=== PATIENT | male | born 1960 | race Caucasian/White ===

== ENCOUNTER 2024-12-23 20:59 | Inpatient (IN) ==
[2024-12-23] MEDS: SODIUM CHLORIDE 0.9% 1,000 ML IV SCH (21:57)
[2024-12-23 22:01] LABS: Hematocrit (blood only) 35.8 % (42.0-52.0); Hemoglobin 12.5 g/dl (14.0-18.0); Immature Granulocytes # (auto) 0.08 K/uL (0.01-0.20); Immature Granulocytes % (auto) 0.9 %; Mean Corpuscular Hemoglobin 28.5 pg (25.0-34.0); Mean Corpuscular Volume 81.7 fL (80.0-100.0); Platelet Count 287 K/uL (130-400); RDW Standard Deviation 40.8 fL (36.4-46.3); Red Blood Count 4.38 M/uL (4.70-6.10); White Blood Count 8.44 K/ul (4.8-10.8)
[2024-12-23] MEDS: ONDANSETRON INJ 2 MG/ML 2 ML VIAL IV STA (22:07)
--- NOTE | 2024-12-23 22:18 | Emergency Department Note ---
Impression & Plan CARLOS (acute kidney injury), Acute hyponatremia, Acute hypokalemia, Hypomagnesemia ED Provider Note Diagnosis: Acute kidney injury, hypokalemia, hypomagnesia, hyponatremia Disposition: Admission CHIEF COMPLAINT: Vomiting, abnormal outpatient lab work HPI: Patient is a 64-year-old male presenting with abnormal outpatient lab work. Patient has had significant medical course over the past 2 months time. Patient on November 05 had [id number] cardiac arrest witnessed with instant CPR performed. Patient had cardiac catheterization without need for stenting. Patient did have some V. tach in the ICU at that time reportedly and patient had ICD placed. Patient had to return to the hospital 2 to 3 weeks later requiring PICC line and IV antibiotics and removal of the ICD due to infection. LifeVest was placed. Patient has been experiencing nausea vomiting and has been on vickie pills for it. Patient found to have outpatient abnormal blood work of abnormal electrolytes and acute kidney function today was sent in for IV hydration and further evaluation. Patient's infectious disease doctor had stopped his rifampin 2 days prior due to believing it was causing his acute kidney injury. PAST MEDICAL HISTORY: See Below PAST SURGICAL HISTORY: See Below SOCIAL HISTORY: See Below HOME MEDICATIONS: See Below ALLERGIES: See Below VITALS: See Below PHYSICAL EXAMINATION: GENERAL: Well appearing, well nourished, NAD, non-toxic. EYE EXAM: Normal conjunctiva. OROPHARYNX: Moist mucus membranes. Grossly normal dentition. NECK: Supple, LUNGS: Clear to auscultation. Normal chest wall mechanics. HEART: NSR ABDOMEN: Abdomen soft, non-tender, normo-active bowel sounds, no masses, no rebound or guarding BACK: No CVA TTP. SKIN: No rashes and no bruising. UPPER EXTREMITIES: Upper extremities are grossly normal LOWER EXTREMITIES: Grossly normal, no edema. NEURO EXAM: A&O x3,, normal speech, moves all 4 extremities PSYCH: Cooperative MEDICAL DECISION MAKING: Reviewed external documents: Outpatient isinger blood work History obtained from: Patient, and daughter ER Course: Patient is a 64-year-old male presenting with abnormal outpatient lab work. Patient found to have acute kidney injury. Patient recently stopped his rifampin at infectious disease request. Patient found today to have continued hyponatremia acute kidney injury and hypomagnesia. Patient was given Zofran due to QTc being 430 today. Patient had significant improvement in his nausea after this being administered. Patient had no abdominal pain abdomen was soft. Patient wearing LifeVest in the room. Patient having no active chest pain. Patient's case discussed with hospital service and will see him for further treatment evaluation Labs (independently interpreted) are significant for: Hyponatremia, hypokalemia, hypomagnesia EKG interpretation (independently interpreted): A-flutter regular rate no ST segment elevation or depression Medications given: Normal saline, Zofran, magnesium, potassium Consultants: Hospitalist Triage Nursing notes reviewed and agree them. Vital Signs: reviewed and remarkable for: no significant abnormalities Past Med/Surg History Problem List (Updated 12/23/24 @ 23:19 by Isaias Cohen DO) Hypomagnesemia (Acute) Acute hypokalemia (Acute) Acute hyponatremia (Acute) CARLOS (acute kidney injury) (Acute) Social History Smoking Status: Never smoker Preferred Language: Korean Feels Safe at Home: Yes Allergies Allergies Allergy/AdvReac Type Severity Reaction Status Date / Time Gutavdc-BJN-WnI Reductase AdvReac Severe SEVERE Verified 12/23/24 22:17 Inhibitor MUSCLE PAIN/CRAMPS nitroglycerin AdvReac Intermediate BLOOD Verified 12/23/24 22:17 PRESSURE BOTTOMED OUT Home Meds Home Medications Medication Instructions Recorded Confirmed acetaminophen 325 mg tablet 650 mg PO Q4H PRN PAIN/FEVER 12/23/24 12/23/24 (Tylenol) >100.5F amiodarone 200 mg tablet 200 mg PO DAILY 12/23/24 12/23/24 aspirin 81 mg chewable tablet 81 mg PO DAILY 12/23/24 12/23/24 calcium carbonate (Tums E-X) 300 mg PO Q8H PRN Heartburn 12/23/24 12/23/24 doxycycline hyclate 100 mg capsule 100 mg PO BID 12/23/24 12/23/24 ezetimibe 10 mg tablet 10 mg PO DAILY 12/23/24 12/23/24 heparin lock flush (porcine) 10 10 unit IV BID 12/23/24 12/23/24 unit/mL intravenous solution insulin glargine 100 unit/mL (3 80 unit subcut PM 12/23/24 12/23/24 mL) subcutaneous pen (Lantus Solostar U-100 Insulin) levothyroxine 75 mcg tablet 75 mcg PO DAILYBB 12/23/24 12/23/24 (Levoxyl) loratadine 10 mg tablet (Claritin) 10 mg PO DAILY 12/23/24 12/23/24 magnesium chloride 64 mg 64 mg PO DAILY 12/23/24 12/23/24 (magnesium chloride) tablet,delayed release omega-3 fatty acids 1,000 mg 1,000 mg PO DAILY 12/23/24 12/23/24 capsule oxycodone 10 mg tablet 10 mg PO Q6H PRN Pain 12/23/24 12/23/24 pantoprazole 40 mg tablet,delayed 40 mg PO DAILY 12/23/24 12/23/24 release semaglutide 0.25 mg or 0.5 mg (2 0.5 mg subcut WK 12/23/24 12/23/24 mg/3 mL) subcutaneous pen injector (Ozempic) sennosides 8.6 mg tablet (senna) 8.6 mg PO DAILY 12/23/24 12/23/24 sodium chloride 0.9 % (flush) 10 ml IV DIRECTED 12/23/24 12/23/24 spironolactone 25 mg tablet 25 mg PO DAILY 12/23/24 12/23/24 torsemide 20 mg tablet 40 mg PO DAILY 12/23/24 12/23/24 warfarin 5 mg tablet 5 mg PO DIRECTED 12/23/24 12/23/24 Results & Data (ED) Vital Signs Vital Signs - 24 hr 12/23/24 21:02 12/23/24 21:50 Temperature 36.8 C Temperature Source Oral Respiratory Rate 20 Respiratory Depth Normal Blood Pressure 129/78 Blood Pressure Mean 95 Pulse Oximetry 98 96 Oxygen Delivery Method Room Air Room Air Sepsis Recent Fever Within 48 Hours No Sepsis New/Unexplained Change in Mental Status No Sepsis Action Taken by Nursing No Action Required Laboratory Data 12/23/24 21:19 12/23/24 21:19 Lab Results 12/23/24 Range/Units 21:19 WBC 8.44 (4.8-10.8) K/ul RBC 4.38 L (4.70-6.10) M/uL Hgb 12.5 L (14.0-18.0) g/dl Hct 35.8 L (42.0-52.0) % MCV 81.7 (80.0-100.0) fL MCH 28.5 (25.0-34.0) pg MCHC 34.9 (32.0-36.0) g/dL RDW Std Deviation 40.8 (36.4-46.3) fL RDW Coeff of Yanelis 13.7 (11.5-14.5) % Plt Count 287 (130-400) K/uL MPV 8.9 L (9.4-12.4) fL Immature Gran % (Auto) 0.9 % Neut % (Auto) 69.1 % Lymph % (Auto) 19.3 % [place] % (Auto) 8.3 % Eos % (Auto) 1.1 % Baso % (Auto) 1.3 % Neut # (Auto) 5.83 (1.40-6.50) K/uL Lymph # (Auto) 1.63 (1.20-3.40) K/uL [place] # (Auto) 0.70 H (0.11-0.59) K/uL Eos # (Auto) 0.09 (0.00-0.50) K/uL Baso # (Auto) 0.11 (0.00-0.20) K/uL Immature Gran # (Auto) 0.08 (0.01-0.20) K/uL Sodium 129 L (136-145) mmol/L Potassium 3.2 L (3.5-5.1) mmol/L Chloride 85 L (98-107) mmol/L Carbon Dioxide 31 (21-32) mmol/L Anion Gap 13 H (3-11) BUN 16 (6-23) mg/dl Creatinine 1.84 H (0.6-1.4) mg/dl Est Cr Clr Drug Dosing 45.2 ml/min eGFR 40.43 BUN/Creatinine Ratio 8.7 L (10-20) Glucose 159 H (70-99(Fasting)) mg/dl Calcium 11.0 H (8.6-10.3) mg/dl Magnesium 1.5 L (1.7-2.4) mg/dl Total Bilirubin 0.8 (0.2-1.0) mg/dl AST 51 H (13-39) U/L ALT 69 H (7-52) U/L Alkaline Phosphatase 124 H (34-104) U/L Troponin I High Sens 13.3 (0-20) pg/ml Total Protein 9.6 H (6.0-8.3) gm/dl Albumin 3.7 (3.4-5.0) gm/dl Globulin 5.9 H (2.5-4.0) gm/dl Albumin/Globulin Ratio 0.6 L (0.9-2) Lipase 99 H (11-82) U/L Administered Medications Discontinued Medications Sodium Chloride (Nss) 1,000 mls @ 999 mls/hr IV .Q1H1M KAVON Stop: 12/23/24 23:00 Last Admin: 12/23/24 21:57 Dose: 999 mls/hr Documented By: kaylin Ondansetron HCl (Ondansetron Inj 2 Mg/Ml 2 Ml Vial) 4 mg IV NOW STA Stop: 12/23/24 22:05 Last Admin: 12/23/24 22:07 Dose: 4 mg Documented By: kaylin Discharge Plan Visit Data Chief Complaint: Abnormal Labs/Diagnostic Testing Stated Complaint: LOW K, LOW NA, CARDIAC ARREST 1 MONTH AGO ED Provider: Isaias Cohen Discharge Problem: CARLOS (acute kidney injury), Acute hyponatremia, Acute hypokalemia, Hypomagnesemia Condition: Serious Forms Stand Alone Forms: My [facility] Prescriptions Prescriptions: No Action sennosides [senna] 8.6 mg Tablet 8.6 mg PO DAILY acetaminophen [Tylenol] 325 mg Tablet 650 mg PO Q4H PRN (Reason: PAIN/FEVER >100.5F) doxycycline hyclate 100 mg Capsule 100 mg PO BID Rx Instructions: WILL NOT START UNTIL 01/19/25. torsemide 20 mg Tablet 40 mg PO DAILY omega-3 fatty acids 1,000 mg Capsule 1,000 mg PO DAILY amiodarone 200 mg Tablet 200 mg PO DAILY Tums E-X 300 mg (750 mg) Tablet,Chewable 300 mg PO Q8H PRN (Reason: Heartburn) spironolactone 25 mg Tablet 25 mg PO DAILY levothyroxine [Levoxyl] 75 mcg Tablet 75 mcg PO DAILYBB heparin lock flush (porcine) 10 unit/mL Solution 10 unit IV BID Rx Instructions: PICC LINE administer after IV drug administration as part of [facility] protocol pantoprazole 40 mg Tablet,Delayed Release (Dr/Ec) 40 mg PO DAILY warfarin 5 mg Tablet 5 mg PO DIRECTED Rx Instructions: TAKES 10 MG ON MON, WED, & FRI., THEN 7.5 MG ON SUN, ES, THURS, & SAT. aspirin 81 mg Tablet,Chewable 81 mg PO DAILY loratadine [Claritin] 10 mg Tablet 10 mg PO DAILY sodium chloride 0.9 % (flush) Syringe 10 ml IV DIRECTED Rx Instructions: PICC LINE administer before and after IV drug administration as part of [facility] protocol ezetimibe 10 mg Tablet 10 mg PO DAILY insulin glargine [Lantus Solostar U-100 Insulin] 100 unit/mL (3 mL) Insulin Pen 80 unit SUBCUT PM oxycodone 10 mg Tablet 10 mg PO Q6H PRN (Reason: Pain) magnesium chloride 64 mg Tablet,Delayed Release (Dr/Ec) 64 mg PO DAILY Ozempic 0.25 mg or 0.5 mg (2 mg/3 mL) Pen Injector 0.5 mg SUBCUT WK Referrals Referrals: PCP,NO [Physician] -
[2024-12-23 22:38] LABS: Alanine Aminotransferase 69.0 U/L (7-52); Albumin Globulin Ratio 0.6 (0.9-2); Alkaline Phosphatase 124.0 U/L (34-104); Anion Gap 13.0 (3-11); Bilirubin,Total 0.8 mg/dl (0.2-1.0); Blood Urea Nitrogen 16.0 mg/dl (6-23); Calcium 11.0 mg/dl (8.6-10.3); Carbon Dioxide 31.0 mmol/L (21-32); Chloride 85.0 mmol/L (98-107); Creatinine Clr Calc Pharmacy 45.2 ml/min; Globulin 5.9 gm/dl (2.5-4.0); Glucose 159.0 mg/dl (70-99(Fasting)); Lipase 99.0 U/L (11-82); Magnesium 1.5 mg/dl (1.7-2.4); Potassium 3.2 mmol/L (3.5-5.1); Sodium 129.0 mmol/L (136-145); Total Protein 9.6 gm/dl (6.0-8.3)
[2024-12-23] MEDS: MAGNESIUM SULFATE / D5W 1 GM/100 ML BAG IV SCH (23:57)
[2024-12-23] MEDS: POTASSIUM CHLORIDE CRTAB 20 MEQ TABCR PO STA (23:58)
[2024-12-24] MEDS: PANTOprazole 40 MG/10 ML SYR IV ONE (00:13)
--- NOTE | 2024-12-24 02:13 | History & Physical Report ---
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 Patient was having persistent nausea and vomiting. And also CARLOS. Recently was in [facility] ER. Currently patient following with [facility] cardiology and ID. When at [facility] Er Patient called [facility] and told that he is not tolerating rifampin and going to stop it. ID was worried that his Coumadin levels may go off for abruptly stopping rifampin. As per , patient stopped taking rifampin since Friday. Patient states nausea slightly better since Friday. Since last 1 week he has a lot of nausea and vomiting and not able to eat anything. Feeling weak and tired. Has some heartburn. Denies any chest pain. Denies shortness of breath. Afebrile. No headache. No back pain. No cough. No runny nose or sore throat. Bowel and bladder movements normal. No swelling in the legs. Hemodynamics are okay. His outpatient labs showed CARLOS and electrolyte abnormalities and was advised to come to the ER today. In the [facility] epic notes [facility] wanted to call when patient get admitted to hospital. Talked with the ID Dr. Damián [place]. There is question of CARLOS from IV Vanco and ID wanted to change the Vanco for Dapto for now and to decide further antibiotics in a.m. As per the chart he supposed to continue IV antibiotics until 01/18/2025 and then changed to doxycycline after that. There is no drainage or erythema seen surrounding recent ICD removal site. CARLOS Creatinine 1.8 Baseline creatinine 0.9 Holding diuretics Changing Vanco to Dapto Patient having persistent nausea vomiting Gentle fluids Follow repeat labs. Electrolyte abnormalities Hypokalemia and hypomagnesia Replacing Will follow repeat labs Nausea and vomiting Patient thinks possibly from rifampin which was stopped last Friday If not improving will consult GI Getting gentle fluids To avoid QT prolonging drugs as per cardio because of V. tach arrest Received a dose of Zofran in the ER today as his QT was okay We will monitor MRSA bacteremia Presumed prosthetic valve infection Was placed on rifampin and Vanco Was on gentamicin until last Friday Rifampin was stopped last Friday because of nausea vomiting Currently Vanco was getting changed to Dapto for possible Vanco contributing to CARLOS will follow lfts and cpk levels Close follow-up with ID Duration of antibiotics per ID ID consult History of CAD status post CABG On aspirin, Zetia Nonsustained VT Recent VT arrest On amiodarone LifeVest Chronic systolic CHF Echo on 12/06/2024 shows EF of 40 to 44% Currently holding spironolactone and torsemide for CARLOS and electrolyte abnormalities Getting gentle fluids Monitor for volume overload A-fib/a flutter On amiodarone and Coumadin Follow PT/INR Aortic valve replacement On Coumadin Follow PT/INR Diabetes Continue home Lantus Sliding scale Will monitor Hypothyroidism On Synthyroid Hyperlipidemia On Zetia GERD On Protonix DVT prophylaxis On Coumadin Will monitor INR On discharge patient want to follow-up with [facility] P[facility] History of Present Illness Chief Complaint: Weakness and electrolyte abnormalities Primary Care Provider: Tera Upton 64-year-old male with past medical history significant for hyperlipidemia, history of CAD, status post CABG hypertension, history of septic shock, bicuspid aortic valve status post mechanical aortic valve replacement, thoracic aortic aneurysm repair, 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 Patient was having persistent nausea and vomiting. And also CARLOS. Recently was in [place] ER. Currently patient following with [facility] cardiology and ID. When at [facility] Er Patient called [facility] and told that he is not tolerating rifampin and going to stop it. ID was worried that his Coumadin levels may go off for abruptly stopping rifampin. As per , patient stopped taking rifampin since Friday. Patient states nausea slightly better since Friday. Since last 1 week he has a lot of nausea and vomiting and not able to eat anything. Feeling weak and tired. Has some heartburn. Denies any chest pain. Denies shortness of breath. Afebrile. No headache. No back pain. No cough. No runny nose or sore throat. Bowel and bladder movements normal. No swelling in the legs. Hemodynamics are okay. His outpatient labs showed CARLOS and electrolyte abnormalities and was advised to come to the ER today. In the [facility] epic notes [facility] wanted to call when patient get admitted to hosp [facility]. Talked with the ID Dr. Damián [place]. There is question of CARLOS from IV Vanco and ID wanted to change the Vanco for Dapto for now and to decide further antibiotics in a.m. As per the chart he supposed to continue IV antibiotics until 01/18/2025 and then changed to doxycycline after that. There is no drainage or erythema seen surrounding recent ICD removal site. Past medical history. As mentioned above Past surgical history. Ascending aortic aneurysm graft with bypass. CABG. Left heart catheterization. History history of single chamber defibrillator placement. Appendectomy. Removal of defibrillator. Repair of tibial shaft. Aortic valve replacement. Social history. . Quit cigarettes in 2018. No alcohol use. No drug use. Family history. Sister had cancer. Mother had diabetes. Heart disorder. Hypertension. Father had heart disorder. Hypertension. Allergies Allergy/AdvReac Type Severity Reaction Status Date / Time Ajgmpyh-CBO-IoD Reductase AdvReac Severe SEVERE Verified 12/23/24 22:17 Inhibitor MUSCLE PAIN/CRAMPS nitroglycerin AdvReac Intermediate BLOOD Verified 12/23/24 22:17 PRESSURE BOTTOMED OUT Home Medications Medication Instructions Recorded Confirmed Type acetaminophen 325 mg tablet 650 mg PO Q4H PRN PAIN/FEVER 12/23/24 12/23/24 History (Tylenol) >100.5F amiodarone 200 mg tablet 200 mg PO DAILY 12/23/24 12/23/24 History aspirin 81 mg chewable tablet 81 mg PO DAILY 12/23/24 12/23/24 History calcium carbonate (Tums E-X) 300 mg PO Q8H PRN Heartburn 12/23/24 12/23/24 History doxycycline hyclate 100 mg capsule 100 mg PO BID 12/23/24 12/23/24 History ezetimibe 10 mg tablet 10 mg PO DAILY 12/23/24 12/23/24 History heparin lock flush (porcine) 10 10 unit IV BID 12/23/24 12/23/24 History unit/mL intravenous solution insulin glargine 100 unit/mL (3 80 unit subcut PM 12/23/24 12/23/24 History mL) subcutaneous pen (Lantus Solostar U-100 Insulin) levothyroxine 75 mcg tablet 75 mcg PO DAILYBB 12/23/24 12/23/24 History (Levoxyl) loratadine 10 mg tablet (Claritin) 10 mg PO DAILY 12/23/24 12/23/24 History magnesium chloride 64 mg 64 mg PO DAILY 12/23/24 12/23/24 History (magnesium chloride) tablet,delayed release omega-3 fatty acids 1,000 mg 1,000 mg PO DAILY 12/23/24 12/23/24 History capsule oxycodone 10 mg tablet 10 mg PO Q6H PRN Pain 12/23/24 12/23/24 History pantoprazole 40 mg tablet,delayed 40 mg PO DAILY 12/23/24 12/23/24 History release semaglutide 0.25 mg or 0.5 mg (2 0.5 mg subcut WK 12/23/24 12/23/24 History mg/3 mL) subcutaneous pen injector (Ozempic) sennosides 8.6 mg tablet (senna) 8.6 mg PO DAILY 12/23/24 12/23/24 History sodium chloride 0.9 % (flush) 10 ml IV DIRECTED 12/23/24 12/23/24 History spironolactone 25 mg tablet 25 mg PO DAILY 12/23/24 12/23/24 History torsemide 20 mg tablet 40 mg PO DAILY 12/23/24 12/23/24 History warfarin 5 mg tablet 5 mg PO DIRECTED 12/23/24 12/23/24 History Past Med/Surg History Problem List (Updated 12/23/24 @ 23:19 by Isaias Cohen DO) Hypomagnesemia (Acute) Acute hypokalemia (Acute) Acute hyponatremia (Acute) CARLOS (acute kidney injury) (Acute) Social History Smoking Status: Never smoker Hx Alcohol Use: No Hx Substance Use: No Preferred Language: Ethiopian Communication Ability: Effective Fashion Director Required: Yes and No Beliefs That Will Affect Care: None Current Living Situation: Spouse Feels Safe at Home: Yes Safety Concerns: Feels Safe At This Time Assistive Devices: Glasses Assistive Devices Comment: life vest with monitor and batteries Review of Systems Review of Systems: All systems reviewed & are unremarkable except as noted in HPI & below Physical Exam Physical Exam: General- Not in distress. Head- atraumatic Eyes- PERRL. ENT- oropharynx clear Neck- supple, no JVD. Lungs- clear to auscultation no wheezing or crackles Heart- regular rhythm; no murmur, no gallop. ICD removal site sutures seen. No erythema or drainage seen Abdomen- normal bowel sounds, soft, nontender, no distension Extremities- no pretibial edema, no erythema seen Neuro- alert, oriented PERRL, no facial palsy; no dysarthria; moves extremities Results & Data Results & Data Vital Signs (Past 12 Hours) Vital Signs Temp Resp BP Pulse Ox O2 Del Method 12/23/24 21:50 96 Room Air 12/23/24 21:02 36.8 C 20 129/78 98 Room Air Diagnostic Findings Laboratory Results WBC 8.44 K/ul (4.8-10.8) 12/23/24 21:19 RBC 4.38 M/uL (4.70-6.10) L 12/23/24 21:19 Hgb 12.5 g/dl (14.0-18.0) L 12/23/24 21:19 Hct 35.8 % (42.0-52.0) L 12/23/24 21:19 MCV 81.7 fL (80.0-100.0) 12/23/24 21:19 MCH 28.5 pg (25.0-34.0) 12/23/24 21:19 MCHC 34.9 g/dL (32.0-36.0) 12/23/24 21:19 RDW Std Deviation 40.8 fL (36.4-46.3) 12/23/24 21:19 RDW Coeff of Yanelis 13.7 % (11.5-14.5) 12/23/24 21:19 Plt Count 287 K/uL (130-400) 12/23/24 21:19 MPV 8.9 fL (9.4-12.4) L 12/23/24 21:19 Immature Gran % (Auto) 0.9 % 12/23/24 21:19 Neut % (Auto) 69.1 % 12/23/24 21:19 Lymph % (Auto) 19.3 % 12/23/24 21:19 [place] % (Auto) 8.3 % 12/23/24 21:19 Eos % (Auto) 1.1 % 12/23/24 21:19 Baso % (Auto) 1.3 % 12/23/24 21:19 Neut # (Auto) 5.83 K/uL (1.40-6.50) 12/23/24 21:19 Lymph # (Auto) 1.63 K/uL (1.20-3.40) 12/23/24 21:19 [place] # (Auto) 0.70 K/uL (0.11-0.59) H 12/23/24 21:19 Eos # (Auto) 0.09 K/uL (0.00-0.50) 12/23/24 21:19 Baso # (Auto) 0.11 K/uL (0.00-0.20) 12/23/24 21:19 Immature Gran # (Auto) 0.08 K/uL (0.01-0.20) 12/23/24 21:19 Sodium 129 mmol/L (136-145) L 12/23/24 21:19 Potassium 3.2 mmol/L (3.5-5.1) L 12/23/24 21:19 Chloride 85 mmol/L (98-107) L 12/23/24 21:19 Carbon Dioxide 31 mmol/L (21-32) 12/23/24 21:19 Anion Gap 13 (3-11) H 12/23/24 21:19 BUN 16 mg/dl (6-23) 12/23/24 21:19 Creatinine 1.84 mg/dl (0.6-1.4) H 12/23/24 21:19 Est Cr Clr Drug Dosing 45.2 ml/min 12/23/24 21:19 eGFR 40.43 12/23/24 21:19 BUN/Creatinine Ratio 8.7 (10-20) L 12/23/24 21:19 Glucose 159 mg/dl (70-99(Fasting)) H 12/23/24 21:19 Calcium 11.0 mg/dl (8.6-10.3) H 12/23/24 21:19 Magnesium 1.5 mg/dl (1.7-2.4) L 12/23/24 21:19 Total Bilirubin 0.8 mg/dl (0.2-1.0) 12/23/24 21:19 AST 51 U/L (13-39) H 12/23/24 21:19 ALT 69 U/L (7-52) H 12/23/24 21:19 Alkaline Phosphatase 124 U/L (34-104) H 12/23/24 21:19 Troponin I High Sens 13.3 pg/ml (0-20) 12/23/24 21:19 Total Protein 9.6 gm/dl (6.0-8.3) H 12/23/24 21:19 Albumin 3.7 gm/dl (3.4-5.0) 12/23/24 21:19 Globulin 5.9 gm/dl (2.5-4.0) H 12/23/24 21:19 Albumin/Globulin Ratio 0.6 (0.9-2) L 12/23/24 21:19 Lipase 99 U/L (11-82) H 12/23/24 21:19 ECG Additional Comments: ECG a flutter with variable AV block at a rate of 89. ST-T abnormality in lateral leads. QTc 435 Code Status & VTE Plan VTE Prophylaxis Plan VTE Prophylaxis will be ordered: Yes
[2024-12-24] MEDS ORDERED: ACETAMINOPHEN 325 MG TAB PO PRN (03:00)
[2024-12-24] MEDS ORDERED: DEXTROSE 50% 50 ML SYRINGE IV PRN (03:00)
[2024-12-24] MEDS ORDERED: GLUCOSE 40% GEL 15 GM TUBE PO PRN (03:00)
[2024-12-24] MEDS ORDERED: NITROGLYCERIN SL 0.4 MG/TAB TAB SL PRN (03:00)
[2024-12-24] MEDS ORDERED: SODIUM CHLORIDE 0.9% 10ML FLUSH IV SCH (03:00)
[2024-12-24] MEDS ORDERED: GLUCAGON FOR INJ 1 MG VIAL SQ PRN (03:00)
[2024-12-24] MEDS ORDERED: WARFARIN SOD 5 MG TAB PO SCH (03:00)
[2024-12-24] MEDS ORDERED: CARBOHYDRATES FOR HYPOGLYCEMIA PO PRN (03:00)
[2024-12-24] MEDS ORDERED: GLUCOSE 10 TAB/TUBE PO PRN (03:00)
[2024-12-24] MEDS ORDERED: CALCIUM CARBONATE 500 MG CHEWABLE TAB PO PRN (03:13)
[2024-12-24] MEDS: SODIUM CHLORIDE 0.9% 1,000 ML IV SCH (03:21)
[2024-12-24] MEDS: DAPTOmycin 700 MG in SYRINGE 0 ML IV SCH (03:26)
[2024-12-24 04:01] LABS: INR 1.9 (0.9-1.1); Prothrombin Time 19.1 Seconds (9.0-12.0)
[2024-12-24] MEDS: LEVOTHYROXINE SODIUM 75 MCG TABLET PO SCH (05:38)
[2024-12-24 06:59] LABS: Hematocrit (blood only) 31.7 % (42.0-52.0); Hemoglobin 11.0 g/dl (14.0-18.0); Immature Granulocytes # (auto) 0.05 K/uL (0.01-0.20); Immature Granulocytes % (auto) 0.7 %; Mean Corpuscular Hemoglobin 29.0 pg (25.0-34.0); Mean Corpuscular Volume 83.6 fL (80.0-100.0); Platelet Count 227 K/uL (130-400); RDW Standard Deviation 42.1 fL (36.4-46.3); Red Blood Count 3.79 M/uL (4.70-6.10); White Blood Count 7.40 K/ul (4.8-10.8)
[2024-12-24 07:20] LABS: Alanine Aminotransferase 71.0 U/L (7-52); Alkaline Phosphatase 99.0 U/L (34-104); Anion Gap 9.0 (3-11); Bilirubin,Total 0.7 mg/dl (0.2-1.0); Blood Urea Nitrogen 14.0 mg/dl (6-23); Calcium 9.6 mg/dl (8.6-10.3); Carbon Dioxide 28.0 mmol/L (21-32); Chloride 94.0 mmol/L (98-107); Creatine Kinase 37.0 U/L (30-223); Creatinine Clr Calc Pharmacy 48.2 ml/min; Glucose 175.0 mg/dl (70-99(Fasting)); Magnesium 2.1 mg/dl (1.7-2.4); Potassium 3.2 mmol/L (3.5-5.1); Sodium 131.0 mmol/L (136-145); Total Protein 8.0 gm/dl (6.0-8.3)
[2024-12-24 08:01] LABS: Hemoglobin A1C 7.0 % (4.5-5.6)
[2024-12-24] MEDS: AMIODARONE 200 MG TAB PO SCH (08:32)
[2024-12-24] MEDS: ASPIRIN 81 MG CHEW PO SCH (08:33)
[2024-12-24] MEDS: LORATADINE 10 MG TAB PO SCH (08:33)
[2024-12-24] MEDS: EZETIMIBE 10 MG TAB PO SCH (08:33)
[2024-12-24] MEDS: MAGNESIUM CHLORIDE W/CALCIUM 64MG DELAYED REL TAB PO SCH (08:33)
[2024-12-24] MEDS: INSULIN ASPART PER UNIT CHARGE SC SCH (08:37)
--- NOTE | 2024-12-24 13:22 | Infectious Disease Consult ---
Date of Service December 24, 2024 Telehealth Information I performed this visit using a real-time telehealth connection between my location and the patients location ([facility]). After connecting through interactive tele-video, patient was identified by name and date of and/or wristband check.Patient (or authorized healthcare contracts representative) was informed that this was a telemedicine visit and it was being conducted confidentially over secure lines. My office door was closed and no o ne else was present in the room with me.Patient (or authorized healthcare contracts representative) provided consent to proceed with the visit, expressed an understanding of privacy and security of the telemedicine visit, and gave permission to have a hospital contracts representative in the room in order to assist with the visit and to conduct portions of the visit, as needed. I informed the patient (or authorized healthcare contracts representative) that I reviewed their record and presented the opportunity for them to ask any questions regarding the visit today. The patient agreed to participate. 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 Therefore, I agree with changing IV vancomycin to IV daptomycin. We will continue the course of treatment with IV daptomycin only; to be transitioned after that to oral doxycycline for chronic suppressive therapy. Since the patient has been having significant GI side effects due to rifampin, I would recommend stopping it completely. Updated OPAT note to follow in another encounter. History of Present Illness History of Present Illness Mr. 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 Patient is known to our service from his admission to [facility] on 12/04/2024 because of septic shock. At that time, he was found to have MRSA bacteremia with JUDIE showing no intracardiac masses or vegetations or even ICD vegetations. During that admission, the ICD was removed and ICD deep pocket wound was swabbed and sent for culture which grew MRSA. 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 The patient completed his gentamicin, but he has been having nausea and vomiting since discharge which was attributed to rifampin and he had to stop taking it on Friday12/21/2024. Moreover, outpatient labs from 12/23/2024 were suggestive of CARLOS with electrolyte disturbances (creatinine 1.97 and potassium of 3). He then contacted my colleague, Dr. Park who decided to change vancomycin to daptomycin and instructed the patient to go to the Emergency Department for further management. On presentation, all of his vitals were within normal limits. His chemistry showed hyponatremia, hypokalemia and elevated creatinine at 1.84. ID team was consulted for further recommendations and for continuity of care. Allergies Allergy/AdvReac Type Severity Reaction Status Date / Time [id number] Reductase AdvReac Severe SEVERE Verified 12/23/24 22:17 Inhibitor MUSCLE PAIN/CRAMPS nitroglycerin AdvReac Intermediate BLOOD Verified 12/23/24 22:17 PRESSURE BOTTOMED OUT Home Medications Medication Instructions Recorded Confirmed Type acetaminophen 325 mg tablet 650 mg PO Q4H PRN PAIN/FEVER 12/23/24 12/23/24 History (Tylenol) >100.5F amiodarone 200 mg tablet 200 mg PO DAILY 12/23/24 12/23/24 History aspirin 81 mg chewable tablet 81 mg PO DAILY 12/23/24 12/23/24 History calcium carbonate (Tums E-X) 300 mg PO Q8H PRN Heartburn 12/23/24 12/23/24 History doxycycline hyclate 100 mg capsule 100 mg PO BID 12/23/24 12/23/24 History ezetimibe 10 mg tablet 10 mg PO DAILY 12/23/24 12/23/24 History heparin lock flush (porcine) 10 10 unit IV BID 12/23/24 12/23/24 History unit/mL intravenous solution insulin glargine 100 unit/mL (3 80 unit subcut PM 12/23/24 12/23/24 History mL) subcutaneous pen (Lantus Solostar U-100 Insulin) levothyroxine 75 mcg tablet 75 mcg PO DAILYBB 12/23/24 12/23/24 History (Levoxyl) loratadine 10 mg tablet (Claritin) 10 mg PO DAILY 12/23/24 12/23/24 History magnesium chloride 64 mg 64 mg PO DAILY 12/23/24 12/23/24 History (magnesium chloride) tablet,delayed release omega-3 fatty acids 1,000 mg 1,000 mg PO DAILY 12/23/24 12/23/24 History capsule oxycodone 10 mg tablet 10 mg PO Q6H PRN Pain 12/23/24 12/23/24 History pantoprazole 40 mg tablet,delayed 40 mg PO DAILY 12/23/24 12/23/24 History release semaglutide 0.25 mg or 0.5 mg (2 0.5 mg subcut WK 12/23/24 12/23/24 History mg/3 mL) subcutaneous pen injector (Ozempic) sennosides 8.6 mg tablet (senna) 8.6 mg PO DAILY 12/23/24 12/23/24 History sodium chloride 0.9 % (flush) 10 ml IV DIRECTED 12/23/24 12/23/24 History spironolactone 25 mg tablet 25 mg PO DAILY 12/23/24 12/23/24 History torsemide 20 mg tablet 40 mg PO DAILY 12/23/24 12/23/24 History warfarin 5 mg tablet 5 mg PO DIRECTED 12/23/24 12/23/24 History Patient History Social History Smoking Status: Never smoker Hx Alcohol Use: No Hx Substance Use: No Preferred Language: Montserratian Communication Ability: Effective Catalog Specialist Required: Yes and No Beliefs That Will Affect Care: None Current Living Situation: Spouse Feels Safe at Home: Yes Safety Concerns: Feels Safe At This Time Assistive Devices: Cane Assistive Devices Comment: life vest with monitor and batteries Review of Systems Negative except for what was mentioned in the H&P. Physical Exam Could not be performed given that the encounter was conducted via TeleMed. Results & Data Vital Signs (Past 12 Hours) Vital Signs Temp Pulse Pulse Resp BP BP Pulse Ox 12/24/24 11:21 36.7 C 69 18 122/73 99 12/24/24 08:00 61 12/24/24 07:47 36.7 C 73 20 130/71 97 12/24/24 07:25 107 H 12/24/24 03:19 70 21 150/81 H 96 12/24/24 03:00 36.7 C 77 20 152/91 H 98 12/24/24 03:00 Pulse Ox O2 Del Method O2 Del Method 12/24/24 11:21 Room Air 12/24/24 08:00 12/24/24 07:47 Room Air 12/24/24 07:25 12/24/24 03:19 Room Air 12/24/24 03:00 Room Air 12/24/24 03:00 98 Room Air
--- NOTE | 2024-12-24 13:45 | Communication Note ---
Date of Service: December 24, 2024 Rationale for using chronic suppressive therapy: It is extremely important to mentioned that during his admission to [facility] in early November 2024, the patient was bacteremic on 12/04/2024 and 12/07/2024. His ICD was removed on 12/06/2024 and the culture obtained from the ICD pocket was also positive for MRSA. In this case, I will also have to assume that his ICD leads was infected. Though the ICD was removed and the patient was already treated as a prosthetic valve endocarditis (vancomycin and rifampin-rifampin stopped on 12/21 due to side effects with gentamicin for the 1st 2 weeks), patient has a very complicated cardiac history including aortic mechanical valve, ascending aortic graft, and infected ascending aortic aneurysm status post patch repair. This prompts me to place on chronic suppressive therapy (in agreement with Dr. Park's recommendations) especially with the fact that recurrence of infection in him will likely be catastrophic and he will be a very poor surgical candidate. FINAL IMPRESSION AND RECOMMENDATIONS: Syndrome Endocarditis/Device/graft infection Microbiology Staphylococcus aureus (MRSA) Antibiotic Daptomycin 10-12 mg/kg IV Q24 hours (adjust for renal function) - 1000 mg q 24 hrs End Date Jan 17, 2025 This plan will become effective on Jan 18, 2025 Syndrome Endocarditis/Device/graft infection Microbiology Staphylococcus aureus (MRSA) Antibiotic Doxycycline 100 mg PO BID End Date Likely for life Vascular access: Remove intravascular access after completion of antibiotics Recommended followup imaging studies: Not applicable LABORATORY MONITORING: Lab Test Frequency End Date BMP CBC with diff CPK Q week Jan 17, 2025 PROVIDERS: Following ID Physician ID clinic follow-up date Sonja Ridley Jan 12, 2025
[2024-12-24] MEDS: WARFARIN SOD 10 MG TAB PO SCH (15:52)
--- NOTE | 2024-12-24 16:22 | Communication Note ---
Date of Service: December 24, 2024 The patient was seen and examined in telemetry unit in presence of the . He was admitted with abnormal labs showing increasing BUN and creatinine as an outpatient and is feeling weak and tired. His intravenous vancomycin has been discontinued and he has been started with intravenous daptomycin. Awaiting ID input and recommendation prior to discharge likely tomorrow. Full progress note will be done tomorrow. Dr Gianfranco Jefferson
[2024-12-24] MEDS: LANTUS PER UNIT CHARGE SQ SCH (20:27)
--- NOTE | 2024-12-24 22:27 | Electrocardiogram Report ---
Test Reason : Blood Pressure : */* mmHG Vent. Rate : 89 BPM Atrial Rate : * BPM P-R Int : * ms QRS Dur : 114 ms QT Int : 358 ms P-R-T Axes : * -10 180 degrees QTcB Int : 435 ms Atrial fibrillation Possible Inferior infarct , age undetermined Nonspecific ST and T wave abnormality Abnormal ECG No previous ECGs available Confirmed by Contreras Sy ([id number]) on 12/24/2024 10:27:29 PM Referred By: REFERRED SELF Confirmed By: Contreras Sy
--- NOTE | 2024-12-24 22:29 | Electrocardiogram Report ---
Test Reason : Blood Pressure : */* mmHG Vent. Rate : 72 BPM Atrial Rate : 72 BPM P-R Int : 226 ms QRS Dur : 112 ms QT Int : 452 ms P-R-T Axes : 63 27 176 degrees QTcB Int : 494 ms Sinus rhythm with 1st degree A-V block Possible Left atrial enlargement Prolonged QT Abnormal ECG When compared with ECG of 23-Dec-2024 21:09, Sinus rhythm has replaced Atrial fibrillation Borderline criteria for Inferior infarct are no longer Present QT has lengthened Confirmed by Contreras Sy ([id number]) on 12/24/2024 10:28:45 PM Referred By: REFERRED SELF Confirmed By: Contreras Sy
[2024-12-25 06:56] LABS: INR 2.0 (0.9-1.1); Prothrombin Time 20.3 Seconds (9.0-12.0)
[2024-12-25 07:20] VITALS: RESP 16
[2024-12-25 07:25] LABS: Alanine Aminotransferase 101.0 U/L (7-52); Albumin Globulin Ratio 0.7 (0.9-2); Alkaline Phosphatase 88.0 U/L (34-104); Anion Gap 6.0 (3-11); Bilirubin,Total 0.5 mg/dl (0.2-1.0); Blood Urea Nitrogen 21.0 mg/dl (6-23); Calcium 8.6 mg/dl (8.6-10.3); Carbon Dioxide 27.0 mmol/L (21-32); Chloride 102.0 mmol/L (98-107); Creatinine Clr Calc Pharmacy 47.4 ml/min; Globulin 4.4 gm/dl (2.5-4.0); Glucose 156.0 mg/dl (70-99(Fasting)); Magnesium 1.8 mg/dl (1.7-2.4); Potassium 3.1 mmol/L (3.5-5.1); Sodium 135.0 mmol/L (136-145); Total Protein 7.5 gm/dl (6.0-8.3)
[2024-12-25] MEDS: POTASSIUM CHLORIDE CRTAB 20 MEQ TABCR PO STA (08:17)
[2024-12-25] MEDS: NSS + 20MEQ KCL 20 MEQ/1,000 ML BAG IV SCH (11:21)
--- NOTE | 2024-12-25 11:29 | Hospitalist Progress Note ---
Date of Service December 25, 2024 Assessment & Plan (1) CARLOS (acute kidney injury): Plan: 64-year-old male with past medical history significant for hyperlipidemia, history of CAD, status post CABG hypertension, history of septic shock, bicuspid aortic valve status post mechanical aortic valve replacement, thoracic aortic aneurysm repair, 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 Patient was having persistent nausea and vomiting. And also CARLOS. Recently was in [facility] ER. Currently patient following with [facility] cardiology and ID. When at [facility] Er Patient called [facility] LORI Park and told that he is not tolerating rifampin and going to stop it. ID was worried that his Coumadin levels may go off for abruptly stopping rifampin. As per , patient stopped taking rifampin since Friday. Patient states nausea slightly better since Friday. Since last 1 week he has a lot of nausea and vomiting and not able to eat anything. Feeling weak and tired. Has some heartburn. Denies any chest pain. Denies shortness of breath. Afebrile. No headache. No back pain. No cough. No runny nose or sore throat. Bowel and bladder movements normal. No swelling in the legs. Hemodynamics are okay. His outpatient labs showed CARLOS and electrolyte abnormalities and was advised to come to the ER today. In the [facility] epic notes [facility] wanted to call when patient get admitted to hospital. Talked with the ID Dr. Damián Park. There is question of CARLOS from IV Vanco and ID wanted to change the Vanco for Dapto for now and to decide further antibiotics in a.m. As per the chart he supposed to continue IV antibiotics until 01/18/2025 and then changed to doxycycline after that. There is no drainage or erythema seen surrounding recent ICD removal site. CARLOS Creatinine 1.8 Baseline creatinine 0.9 Holding diuretics Changing Vanco to Dapto Patient having persistent nausea vomiting Gentle fluids Will repeat PRP at 2 PM and if the creatinine has been improving the patient will be discharged home this afternoon Electrolyte abnormalities Hypokalemia and hypomagnesia Replacing Potassium remains little bit low at 3.1 and that has been replaced Nausea and vomiting Patient thinks possibly from rifampin which was stopped last Friday If not improving will consult GI Getting gentle fluids To avoid QT prolonging drugs as per cardio because of V. tach arrest Received a dose of Zofran in the ER today as his QT was okay No more nausea or vomiting MRSA bacteremia Presumed prosthetic valve infection Was placed on rifampin and Vanco Was on gentamicin until last Friday Rifampin was stopped last Friday because of nausea vomiting Currently Vanco was getting changed to Dapto for possible Vanco contributing to CARLOS will follow lfts and cpk levels Close follow-up with ID Duration of antibiotics per ID Appreciate ID input and recommendation- will continue with daptomycin 10 to 12 mg culture gram IV daily with a stop date of January 17 and start doxycycline 100 mg twice daily from January 18 for life History of CAD status post CABG On aspirin, Zetia Nonsustained VT Recent VT arrest On amiodarone LifeVest Chronic systolic CHF Echo on 12/06/2024 shows EF of 40 to 44% Currently holding spironolactone and torsemide for CARLOS and electrolyte abnormalities Getting gentle fluids Monitor for volume overload A-fib/a flutter On amiodarone and Coumadin Follow PT/INR Aortic valve replacement On Coumadin Follow PT/INR-2.0 today 12/25/2024 Diabetes Continue home Lantus Sliding scale Will monitor Hypothyroidism On Synthyroid Hyperlipidemia On Zetia GERD On Protonix DVT prophylaxis On Coumadin Will monitor INR On discharge patient want to follow-up with [facility] PCP Admission and Anticipated Discharge Date Admission Date: December 24, 2024 Subjective 12/25/2024 The patient was seen and examined in telemetry unit in presence of the He has been feeling much better and has been ambulating without any difficulties He wants to go home this afternoon if possible Review of Systems Review of Systems: All systems reviewed and are unremarkable except as noted below Physical Exam Physical Exam: Sitting at the edge of the bed without any acute distress Constitutional: well developed and well nourished; not ill appearing Eyes: PERRL, conjunctivae normal, anicteric sclerae ENMT: external ear and nose normal, oropharynx normal Neck: trachea midline, no thyromegaly Respiratory: no respiratory distress Auscultation: lungs clear to auscultation bilaterally Cardiovascular: Rate/Rhythm: regular rate and regular rhythm; not tachycardic Heart Sounds: normal S1, normal S2 and + murmur Extremities: + edema (Trace edema bilaterally) Gastrointestinal (Abdomen): Inspection/Auscultation: normal bowel sounds; abdomen not distended Percussion/Palpation: abdomen soft; abdomen nontender Musculoskeletal: no acute arthritis involving any of the joint Neurologic: normal touch/pain/proprioception and moves all extremities; no focal motor deficits Psychiatric: A+Ox3, euthymic affect Lymphatic: no cervical or axillary lymphadenopathy Results & Data Results & Data Vital Signs (Past 12 Hours) Vital Signs Temp Pulse Resp BP Pulse Ox O2 Del Method 12/25/24 07:20 36.7 C 72 16 143/84 H 95 Room Air 12/25/24 02:32 36.6 C 64 18 126/74 95 Room Air Laboratory Results [facility] 12/25/24 05:38 Sodium 135 L Potassium 3.1 L Chloride 102 Carbon Dioxide 27 BUN 21 Creatinine 1.74 H Glucose 156 H Calcium 8.6 Liver Function 12/25/24 Range/Units 05:38 Total Bilirubin 0.5 (0.2-1.0) mg/dl AST 90 H (13-39) U/L ALT 101 H (7-52) U/L Alkaline Phosphatase 88 (34-104) U/L Albumin 3.1 L (3.4-5.0) gm/dl Medications Administered Current Inpatient Medications Acetaminophen (Acetaminophen 325 Mg Tab) 650 mg PO Q4H PRN PRN Reason: Pain or Fever Stop: 01/23/25 02:59 Amiodarone HCl (Amiodarone 200 Mg Tab) 200 mg PO DAILY KAVON Stop: 01/23/25 08:59 Last Admin: 12/25/24 09:59 Dose: 200 mg Aspirin (Aspirin 81 Mg Chew) 81 mg PO DAILY KAVON Stop: 01/23/25 08:59 Last Admin: 12/25/24 09:58 Dose: 81 mg Calcium Carbonate (Calcium Carbonate 500 Mg Chewable Tab) 500 mg PO Q8H PRN PRN Reason: Heartburn Stop: 01/23/25 03:12 Dextrose (Dextrose 50% 50 Ml Syringe) 25 - 50 ml IV UD PRN; Protocol PRN Reason: Hypoglycemia Protocol Stop: 01/23/25 02:59 Ezetimibe (Ezetimibe 10 Mg Tab) 10 mg PO DAILY KAVON Stop: 01/23/25 08:59 Last Admin: 12/25/24 09:58 Dose: 10 mg Glucagon (Glucagon For Inj 1 Mg Vial) 1 mg SQ UD PRN; Protocol PRN Reason: Hypoglycemia Protocol Stop: 01/23/25 02:59 Glucose (Glucose 40% Gel 15 Gm Tube) 15 - 30 gm PO UD PRN; Protocol PRN Reason: Hypoglycemia Protocol Stop: 01/23/25 02:59 Glucose (Glucose 10 Tab/Tube) 4 - 8 tab PO UD PRN; Protocol PRN Reason: Hypoglycemia Protocol Stop: 01/23/25 02:59 Heparin Sodium (Beef Lung) (Heparin 10 Unit/Ml 5 Ml Flush) 10 ml FLUSH BID KAVON Stop: 01/23/25 08:59 Last Admin: 12/25/24 09:59 Dose: Not Given Heparin Sodium (Beef Lung) (Heparin 10 Unit/Ml 5 Ml Flush) 5 ml FLUSH PRN PRN PRN Reason: Flush Stop: 01/24/25 03:28 Sodium Chloride (Nss) 1,000 mls @ 80 mls/hr IV .[id number] [facility] Stop: 12/27/24 02:59 Last Admin: 12/25/24 03:34 Dose: 80 mls/hr Daptomycin 700 mg/ Syringe 14 mls @ 7 mls/min IV Q24H [facility]; Protocol Stop: 01/07/25 03:59 Last Admin: 12/25/24 03:34 Dose: 7 mls/min Potassium Chloride/Sodium Chloride (Normal Saline W/20 Meq Kcl) 20 meq in 1,000 mls @ 100 mls/hr IV .Q10H [facility] Stop: 12/28/24 07:59 Last Admin: 12/25/24 11:21 Dose: 100 mls/hr Insulin Aspart (Insulin Aspart Per Unit Charge) 0 units SC ACHS KAVON Stop: 01/23/25 07:29 Last Admin: 12/25/24 12:05 Dose: 10 units Insulin Glargine (Lantus Per Unit Charge) 80 units SQ PM KAVON Stop: 01/23/25 20:59 Last Admin: 12/24/24 20:27 Dose: Not Given Levothyroxine Sodium (Levothyroxine Sodium 75 Mcg Tablet) 75 mcg PO DAILYBB [facility] Stop: 01/23/25 06:29 Last Admin: 12/25/24 05:30 Dose: 75 mcg Loratadine (Loratadine 10 Mg Tab) 10 mg PO DAILY KAVON Stop: 01/23/25 08:59 Last Admin: 12/25/24 09:58 Dose: 10 mg Magnesium Chloride (Magnesium Chloride W/Calcium 64mg Delayed Rel Tab) 64 mg PO DAILY KAVON Stop: 01/23/25 08:59 Last Admin: 12/25/24 09:58 Dose: 64 mg Miscellaneous (Carbohydrates For Hypoglycemia ) 15 - 30 gm PO UD PRN PRN Reason: Hypoglycemia Protocol Stop: 01/23/25 02:59 Nitroglycerin (Nitroglycerin Sl 0.4 Mg/Tab Tab) 0.4 mg SL Q5M PRN PRN Reason: Chest Pain Stop: 01/23/25 02:59 Oxycodone HCl (Oxycodone Hcl Ir 5 Mg Tab (Immediate Release)) 10 mg PO Q6H PRN PRN Reason: Pain Stop: 01/07/25 02:59 Last Admin: 12/24/24 23:56 Dose: 10 mg Pantoprazole Sodium (Pantoprazole 40 Mg Tab) 40 mg PO DAILY [facility] Stop: 01/23/25 08:59 Last Admin: 12/25/24 09:58 Dose: 40 mg Sodium Chloride (Sodium Chloride 0.9% 10ml Flush) 10 ml IV UD [facility] Stop: 01/23/25 02:59 Warfarin Sodium (Warfarin Sod 10 Mg Tab) 10 mg PO [id number] [facility] Stop: 01/23/25 15:59 Last Admin: 12/24/24 15:52 Dose: 10 mg Warfarin Sodium (Warfarin Sod 7.5 Mg Tab) 7.5 mg PO [id number] [facility] Stop: 01/24/25 15:59
[2024-12-25 11:39] VITALS: BP 146/77; TEMP 98.2; O2SAT 98
[2024-12-25 14:26] LABS: Anion Gap 5.0 (3-11); Blood Urea Nitrogen 21.0 mg/dl (6-23); Calcium 8.6 mg/dl (8.6-10.3); Carbon Dioxide 26.0 mmol/L (21-32); Chloride 102.0 mmol/L (98-107); Creatinine Clr Calc Pharmacy 46.3 ml/min; Glucose 118.0 mg/dl (70-99(Fasting)); Potassium 3.7 mmol/L (3.5-5.1); Sodium 133.0 mmol/L (136-145)
[2024-12-25 14:59] VITALS: PULSE 98
[2024-12-25] MEDS ORDERED: WARFARIN SOD 7.5 MG TAB PO SCH (16:00)
--- NOTE | 2024-12-26 07:36 | Discharge Summary ---
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 Patient was having persistent nausea and vomiting. And also CARLOS. Recently was in [facility] ER. Currently patient following with [facility] cardiology and ID. When at [facility] Patient called [facility] [place] and told that he is not tolerating rifampin and going to stop it. ID was worried that his Coumadin levels may go off for abruptly stopping rifampin. As per , patient stopped taking rifampin since Friday. Patient states nausea slightly better since Friday. Since last 1 week he has a lot of nausea and vomiting and not able to eat anything. Feeling weak and tired. Has some heartburn. Denies any chest pain. Denies shortness of breath. Afebrile. No headache. No back pain. No cough. No runny nose or sore throat. Bowel and bladder movements normal. No swelling in the legs. Hemodynamics are okay. His outpatient labs showed CARLOS and electrolyte abnormalities and was advised to come to the ER today. In the [facility] epic notes [facility] wanted to call when patient get admitted to hospital. Talked with the ID Dr. Damián Park. There is question of CARLOS from IV Vanco and ID wanted to change the Vanco for Dapto for now and to decide f urther antibiotics in a.m. As per the chart he supposed to continue IV antibiotics until 01/18/2025 and then changed to doxycycline after that. There is no drainage or erythema seen surrounding recent ICD removal site. Past medical history. As mentioned above Past surgical history. Ascending aortic aneurysm graft with bypass. CABG. Left heart catheterization. History history of single chamber defibrillator placement. Appendectomy. Removal of defibrillator. Repair of tibial shaft. Aortic valve replacement. Social history. . Quit cigarettes in 2018. No alcohol use. No drug use. Family history. Sister had cancer. Mother had diabetes. Heart disorder. Hypertension. Father had heart disorder. Hypertension. Admission Exam Per Admitting Provider Physical Exam: General- Not in distress. Head- atraumatic Eyes- PERRL. ENT- oropharynx clear Neck- supple, no JVD. Lungs- clear to auscultation no wheezing or crackles Heart- regular rhythm; no murmur, no gallop. ICD removal site sutures seen. No erythema or drainage seen Abdomen- normal bowel sounds, soft, nontender, no distension Extremities- no pretibial edema, no erythema seen Neuro- alert, oriented PERRL, no facial palsy; no dysarthria; moves extremities Principal Diagnosis CARLOS, electrolyte abnormality, MRSA bacteremia, aortic valve replacement Discharge Exam Sitting at the edge of the bed without any acute distress Constitutional well developed and well nourished; not ill appearing Eyes PERRL, conjunctivae normal, anicteric sclerae ENMT external ear and nose normal, oropharynx normal Neck trachea midline, no thyromegaly Respiratory no respiratory distress Auscultation: lungs clear to auscultation bilaterally Cardiovascular Rate/Rhythm: regular rate and regular rhythm; not tachycardic Heart Sounds: normal S1, normal S2 and + murmur Extremities: + edema (Trace edema bilaterally) Gastrointestinal (Abdomen) Inspection/Auscultation: normal bowel sounds; abdomen not distended Percussion/Palpation: abdomen soft; abdomen nontender Neurologic normal touch/pain/proprioception and moves all extremities; no focal motor deficits Psychiatric A+Ox3, euthymic affect Lymphatic no cervical or axillary lymphadenopathy Discharge Data Allergies Allergy/AdvReac Type Severity Reaction Status Date / Time Twmapeh-JHB-RcD Reductase AdvReac Severe SEVERE Verified 12/23/24 22:17 Inhibitor MUSCLE PAIN/CRAMPS nitroglycerin AdvReac Intermediate BLOOD Verified 12/23/24 22:17 PRESSURE BOTTOMED OUT Consultations 12/23/24 23:11 ED Decision to Admit Stat 12/24/24 08:00 Consult Infectious Diseases Routine Hospital Course (1) CARLOS (acute kidney injury): 64-year-old male with past medical history significant for hyperlipidemia, history of CAD, status post CABG hypertension, history of septic shock, bicuspid aortic valve status post mechanical aortic valve replacement, thoracic aortic aneurysm repair, 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 Patient was having persistent nausea and vomiting. And also CARLOS. Recently was in [facility] ER. Currently patient following with [facility] cardiology and ID. When at [facility] Patient called [facility] and told that he is not tolerating rifampin and going to stop it. ID was worried that his Coumadin levels may go off for abruptly stopping rifampin. As per , patient stopped taking rifampin since Friday. Patient states nausea slightly better since Friday. Since last 1 week he has a lot of nausea and vomiting and not able to eat anything. Feeling weak and tired. Has some heartburn. Denies any chest pain. Denies shortness of breath. Afebrile. No headache. No back pain. No cough. No runny nose or sore throat. Bowel and bladder movements normal. No swelling in the legs. Hemodynamics are okay. His outpatient labs showed CARLOS and electrolyte abnormalities and was advised to come to the ER today. In the [facility] epic notes [facility] wanted to call when patient get admitted to hospital. Talked with the ID Dr. Damián Park. There is question of CARLOS from IV Vanco and ID wanted to change the Vanco for Dapto for now and to decide further antibiotics in a.m. As per the chart he supposed to continue IV antibiotics until 01/18/2025 and then changed to doxycycline after that. There is no drainage or erythema seen surrounding recent ICD removal site. CARLOS Creatinine 1.8 Baseline creatinine 0.9 Holding diuretics Changing Vanco to Dapto Patient having persistent nausea vomiting Gentle fluids Will repeat PRP at 2 PM and if the creatinine has been improving the patient will be discharged home this afternoon Electrolyte abnormalities Hypokalemia and hypomagnesia Replacing Potassium remains little bit low at 3.1 and that has been replaced Nausea and vomiting Patient thinks possibly from rifampin which was stopped last Friday If not improving will consult GI Getting gentle fluids To avoid QT prolonging drugs as per cardio because of V. tach arrest Received a dose of Zofran in the ER today as his QT was okay No more nausea or vomiting MRSA bacteremia Presumed prosthetic valve infection Was placed on rifampin and Vanco Was on gentamicin until last Friday Rifampin was stopped last Friday because of nausea vomiting Currently Vanco was getting changed to Dapto for possible Vanco contributing to CARLOS will follow lfts and cpk levels Close follow-up with ID Duration of antibiotics per ID Appreciate ID input and recommendation- will continue with daptomycin 10 to 12 mg culture gram IV daily with a stop date of January 17 and start doxycycline 100 mg twice daily from January 18 for life History of CAD status post CABG On aspirin, Zetia Nonsustained VT Recent VT arrest On amiodarone LifeVest Chronic systolic CHF Echo on 12/06/2024 shows EF of 40 to 44% Currently holding spironolactone and torsemide for CARLOS and electrolyte abnormalities Getting gentle fluids Monitor for volume overload A-fib/a flutter On amiodarone and Coumadin Follow PT/INR Aortic valve replacement On Coumadin Follow PT/INR-2.0 today 12/25/2024 Diabetes Continue home Lantus Sliding scale Will monitor Hypothyroidism On Synthyroid Hyperlipidemia On Zetia GERD On Protonix DVT prophylaxis On Coumadin Will monitor INR On discharge patient want to follow-up with [facility] PCP Total Time Total Time Spent Total Time Spent (In Minutes): 40 minutes Discharge Plan Discharge Items Patient Disposition: Home - Home Health Services Reason For Visit: ELECTROLYTE ABNORMALITY, BACTEREMIA, CHF Discharge Diagnosis: CARLOS, electrolyte abnormality, MRSA bacteremia, aortic valve replacement Condition on Discharge: Fair Activity: Resume your previous activity Non-emergency contact: Primary Care Provider Call non-emergency contact if: you have any medication questions and your symptoms worsen Follow-up/Referrals: Tera Upton [Primary Care Provider] - (Please make an appointment with your PCP within 7 days) Diet: Carb Consistent or DM2 and Heart Healthy Fluids: 1800ml (7 cups) Addtl Attending Provider Instructions: Please take precautions to avoid falls Take your medications as advised You need to continue intravenous Daptomycin with end date on 01/18/2025 and start Doxycycline on 01/18/2025-he will have weekly CBC, CRP and CMP as long as you are on I/V antibiotic Please have your kidney function checked within 1 week when visiting your PCP Keep regular appointment with coagulation clinic to maintain your INR Please keep appointments with your healthcare providers Your torsemide dose has been decreased to 20 mg once a day to avoid dehydration Pending Studies at Discharge: No Stand-Alone Forms: My [facility], Smoking Cessation Medications and DC Order Prescriptions: Continued sennosides [senna] 8.6 mg Tablet 8.6 mg PO DAILY acetaminophen [Tylenol] 325 mg Tablet 650 mg PO Q4H PRN (Reason: PAIN/FEVER >100.5F) doxycycline hyclate 100 mg Capsule 100 mg PO BID Rx Instructions: WILL NOT START UNTIL 01/19/25. omega-3 fatty acids 1,000 mg Capsule 1,000 mg PO DAILY amiodarone 200 mg Tablet 200 mg PO DAILY Tums E-X 300 mg (750 mg) Tablet,Chewable 300 mg PO Q8H PRN (Reason: Heartburn) spironolactone 25 mg Tablet 25 mg PO DAILY levothyroxine [Levoxyl] 75 mcg Tablet 75 mcg PO DAILYBB heparin lock flush (porcine) 10 unit/mL Solution 10 unit IV BID Rx Instructions: PICC LINE administer after IV drug administration as part of [facility] protocol pantoprazole 40 mg Tablet,Delayed Release (Dr/Ec) 40 mg PO DAILY warfarin 5 mg Tablet 5 mg PO DIRECTED Rx Instructions: TAKES 10 MG ON MON, WED, & FRI., THEN 7.5 MG ON FRI, , TH, & SAT. aspirin 81 mg Tablet,Chewable 81 mg PO DAILY loratadine [Claritin] 10 mg Tablet 10 mg PO DAILY sodium chloride 0.9 % (flush) Syringe 10 ml IV DIRECTED Rx Instructions: PICC LINE administer before and after IV drug administration as part of [facility] protocol ezetimibe 10 mg Tablet 10 mg PO DAILY insulin glargine [Lantus Solostar U-100 Insulin] 100 unit/mL (3 mL) Insulin Pen 80 unit SUBCUT PM oxycodone 10 mg Tablet 10 mg PO Q6H PRN (Reason: Pain) magnesium chloride 64 mg Tablet,Delayed Release (Dr/Ec) 64 mg PO DAILY Ozempic 0.25 mg or 0.5 mg (2 mg/3 mL) Pen Injector 0.5 mg SUBCUT WK Changed torsemide 20 mg Tablet 20 mg PO DAILY Qty: 0 0RF Discharge Orders: Discharge Order (Routine); Ordered 12/25/24 Ordered By: Eden Ramirez/Other Patient Handouts: Managing Type 2 Diabetes Admission Data Admit Date/Time: 12/24/24 01:37 Attending Provider: Eden Jefferson Admit Provider: Ge Garcia Primary Care Provider: Tera Upton Other Providers: Ge Garcia; Rg Sargent; Valerie Ridley; Chris Rehman I.; Willi Lamar II; Callie Miller; Dinesh Paredes; Damián Park; Gaby Garcia Other Interventions: Discharge Summary Assessment (RN) Last Done: 12/25/24 14:58
== END 2024-12-25 15:20 | disposition home health service (06) | DRG 683 ==
LOC: ED 20:59 → 2S 12-24 01:37

== ENCOUNTER 2024-12-28 18:10 | Inpatient (IN) ==
--- NOTE | 2024-12-28 18:53 | XRay Report ---
Chest radiograph, one view History: Chest pain Comparison: None Findings: Single AP view of the chest performed. No focal consolidation or pleural effusion. No pneumothorax. The cardiomediastinal silhouette is within normal limits. Normal pulmonary vascularity. No evidence for lymphadenopathy. No visualized bony or soft tissue abnormality. Median sternotomy wires. Chronic right rib deformities. Impression: Normal chest radiograph Electronically signed by Mario Barbosa 12-28-2024 6:52 PM
[2024-12-28 19:03] LABS: Hematocrit (blood only) 31.1 % (42.0-52.0); Hemoglobin 10.7 g/dl (14.0-18.0); Immature Granulocytes # (auto) 0.09 K/uL (0.01-0.20); Immature Granulocytes % (auto) 1.0 %; Mean Corpuscular Hemoglobin 28.9 pg (25.0-34.0); Mean Corpuscular Volume 84.1 fL (80.0-100.0); Platelet Count 218 K/uL (130-400); RDW Standard Deviation 43.7 fL (36.4-46.3); Red Blood Count 3.70 M/uL (4.70-6.10); White Blood Count 8.73 K/ul (4.8-10.8)
--- NOTE | 2024-12-28 19:09 | Emergency Department Note ---
Impression & Plan Paroxysmal A-fib, Heart palpitations ED Provider Note NAME: BANG GILL AGE: 64 SEX: M : 1960 ARRIVES VIA: Walk-In INFORMANT: Patient, ED PROVIDER(S): Bang Maynard DO CHIEF COMPLAINT: Referred by cardiology HPI: The patient is a 64-year-old male who presented to the emergency department referred by cardiology. The patient recently had his defibrillator pacer removed as it was felt to be infected with the leads. He has MRSA bacteremia. He has been treated with IV antibiotics. The patient has a LifeVest that he has been wearing. He was called by cardiology and told to come to the emergency department because of an abnormal rhythm. ROS: See above HPI for pertinent positives & negatives. A total of 10 systems reviewed and were otherwise negative. PAST MEDICAL HISTORY: See Below PAST SURGICAL HISTORY: See Below FAMILY HISTORY: See Below SOCIAL HISTORY: See Below HOME MEDICATIONS: See Below ALLERGIES: See Below VITALS: See Below PHYSICAL EXAMINATION: GENERAL: Patient is awake alert in no acute distress patient is resting comfortably and showing no signs of anxiety EYES: The conjunctivae are clear. The pupils are round and reactive. EARS, NOSE, MOUTH AND THROAT: The nose is without any evidence of any deformity. NECK: The neck is nontender and supple. RESPIRATORY: Normal respiratory effort is noted there is no evidence of wheezing rhonchi or rales CARDIOVASCULAR: Regular rhythm was noted to auscultation. There is metallic click noted. There is no definite murmur. GASTROINTESTINAL: The abdomen is soft. Abdomen is nontender. MUSCULOSKELETAL/EXTREMITIES: There is no evidence of gross deformity full range of motion is noted in the hips and shoulders. SKIN: There is no obvious evidence of any rash. There are no petechiae, pallor or cyanosis noted. NEUROLOGIC: Patient is awake alert and oriented x3 MEDICAL DECISION MAKING: The patient is a 64-year-old male who presented to the emergency department for an evaluation. The patient has a history of recent bacteremia. He had his defibrillator pacer removed because of this. The patient is currently wearing a LifeVest. He was called by his cardiology group and told to come to the emergency department for further evaluation. The patient was monitored on the property assessment monitor. I discussed the patient's laboratory and radiographic studies with him. I discussed his condition with the on-call [facility] paediatrician. Given the patient's situation they do feel the patient may benefit from inpatient monitoring. I discussed his condition with the on-call [facility] hospitalist. They have agreed to evaluate the patient in the emergency department Triage Nursing notes reviewed. Prior medical records reviewed Vital Signs: reviewed and remarkable for no significant abnormalities Differential diagnosis: Premature contractions, electrolyte abnormality, cardiac dysrhythmia, thyroid dysfunction, pulmonary embolism, infection, gastrointestinal, as well as other pathologies. ER treatment provided: See below Diagnostics interpreted by me: ECG: EKG was obtained in the emergency department. My interpretation is normal sinus rhythm at 69 bpm. There is no ectopy. Nonspecific ST depressions with T wave versions were noted. This was carried to a tracing from December 25, 2024. No changes noted. Cardiac Monitoring: An order was placed for continuous cardiac monitoring. The monitor shows a rate of 70 bpm with sinus rhythm. Laboratory studies: As stated above and show below. Imaging studies: See below. Radiographic imaging was reviewed by myself Consultation(s): I discussed this case with Dr. Franco who is on-call for the [facility] cardiology group. I discussed this case with Dr. Jefferson who is on-call for the [facility] hospitalist group. 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) Hypomagnesemia (Acute) Acute hypokalemia (Acute) Acute hyponatremia (Acute) CARLOS (acute kidney injury) (Acute) Social History Smoking Status: Never smoker Hx Alcohol Use: No Hx Substance Use: No Preferred Language: Norwegian Communication Ability: Effective Relationship Mgr Required: Yes and No Beliefs That Will Affect Care: None Current Living Situation: Spouse Feels Safe at Home: Yes Assistive Devices: Cane Allergies Allergies Allergy/AdvReac Type Severity Reaction Status Date / Time [id number] Reductase AdvReac Severe SEVERE Verified 12/28/24 19:57 Inhibitor MUSCLE PAIN/CRAMPS nitroglycerin AdvReac Intermediate BLOOD Verified 12/28/24 19:57 PRESSURE BOTTOMED OUT Home Meds Home Medications Medication Instructions Recorded Confirmed acetaminophen 325 mg tablet 650 mg PO Q4H PRN PAIN/FEVER 12/23/24 12/28/24 (Tylenol) >100.5F amiodarone 200 mg tablet 200 mg PO DAILY 12/23/24 12/28/24 aspirin 81 mg chewable tablet 81 mg PO DAILY 12/23/24 12/28/24 calcium carbonate (Tums E-X) 300 mg PO Q8H PRN Heartburn 12/23/24 12/28/24 doxycycline hyclate 100 mg capsule 100 mg PO BID 12/23/24 12/23/24 ezetimibe 10 mg tablet 10 mg PO DAILY 12/23/24 12/28/24 heparin lock flush (porcine) 10 10 unit IV BID 12/23/24 12/28/24 unit/mL intravenous solution insulin glargine 100 unit/mL (3 80 unit subcut PM 12/23/24 12/28/24 mL) subcutaneous pen (Lantus Solostar U-100 Insulin) levothyroxine 75 mcg tablet 75 mcg PO DAILYBB 12/23/24 12/28/24 (Levoxyl) loratadine 10 mg tablet (Claritin) 10 mg PO DAILY 12/23/24 12/28/24 magnesium chloride 64 mg 64 mg PO QPM 12/23/24 12/28/24 (magnesium chloride) tablet,delayed release omega-3 fatty acids 1,000 mg 2,000 mg PO DAILY 12/23/24 12/28/24 capsule pantoprazole 40 mg tablet,delayed 40 mg PO DAILY 12/23/24 12/28/24 release semaglutide 0.25 mg or 0.5 mg (2 0.5 mg subcut WK 12/23/24 12/28/24 mg/3 mL) subcutaneous pen injector (Ozempic) sodium chloride 0.9 % (flush) 10 ml IV DIRECTED 12/23/24 12/28/24 spironolactone 25 mg tablet 25 mg PO DAILY 12/23/24 12/28/24 warfarin 5 mg tablet 10 mg PO .SEE ATTACHED 12/23/24 12/28/24 daptomycin 500 mg intravenous 0 mg IV QAM 12/28/24 12/28/24 solution simethicone 80 mg chewable tablet 80 mg PO Q6H PRN GAS OR NAUSEA 12/28/24 12/28/24 warfarin 7.5 mg tablet 7.5 mg PO .SEE ATTACHED INSTR 12/28/24 12/28/24 Previous Rx's Medication Instructions Recorded torsemide 20 mg tablet 20 mg PO DAILY #0 tabs 12/25/24 Results & Data (ED) Vital Signs Vital Signs - 24 hr 12/28/24 18:15 12/28/24 18:19 12/28/24 18:38 Temperature 36.3 C L Temperature Source Temporal Artery Scan Pulse Rate 72 Pulse Rate [Left Apical] 73 Respiratory Rate 16 19 Respiratory Effort / Characteristics Non-Labored Non-Labored Non-Labored Spontaneous Respiratory Depth Normal Normal Normal Respiratory Pattern Regular Regular Regular Blood Pressure 139/77 Blood Pressure [Left Arm] 158/86 H Blood Pressure Mean 97 Blood Pressure Mean [Left Arm] 110 Pulse Oximetry 99 97 Oxygen Delivery Method Room Air Room Air Room Air Sepsis Recent Fever Within 48 Hours No Sepsis New/Unexplained Change in Mental Status N/A Sepsis Action Taken by Nursing No Action Required 12/28/24 19:30 12/28/24 19:45 12/28/24 19:58 Temperature Temperature Source Pulse Rate 71 78 Pulse Rate [Left Apical] Respiratory Rate 15 Respiratory Effort / Characteristics Respiratory Depth Respiratory Pattern Blood Pressure Blood Pressure [Left Arm] 141/83 H Blood Pressure Mean Blood Pressure Mean [Left Arm] 102 Pulse Oximetry 97 Oxygen Delivery Method Room Air Sepsis Recent Fever Within 48 Hours Sepsis New/Unexplained Change in Mental Status Sepsis Action Taken by Retirement Medications Current Medication List: was personally reviewed by me Laboratory Data Attestation: I reviewed the patient's lab results. 12/28/24 18:30 12/28/24 18:30 Lab Results 12/28/24 Range/Units 18:30 WBC 8.73 (4.8-10.8) K/ul RBC 3.70 L (4.70-6.10) M/uL Hgb 10.7 L (14.0-18.0) g/dl Hct 31.1 L (42.0-52.0) % MCV 84.1 (80.0-100.0) fL MCH 28.9 (25.0-34.0) pg MCHC 34.4 (32.0-36.0) g/dL RDW Std Deviation 43.7 (36.4-46.3) fL RDW Coeff of Yanelis 14.4 (11.5-14.5) % Plt Count 218 (130-400) K/uL MPV 9.1 L (9.4-12.4) fL Immature Gran % (Auto) 1.0 % Neut % (Auto) 66.1 % Lymph % (Auto) 22.0 % Story % (Auto) 7.8 % Eos % (Auto) 2.1 % Baso % (Auto) 1.0 % Neut # (Auto) 5.77 (1.40-6.50) K/uL Lymph # (Auto) 1.92 (1.20-3.40) K/uL Story # (Auto) 0.68 H (0.11-0.59) K/uL Eos # (Auto) 0.18 (0.00-0.50) K/uL Baso # (Auto) 0.09 (0.00-0.20) K/uL Immature Gran # (Auto) 0.09 (0.01-0.20) K/uL PT 22.7 H (9.0-12.0) Seconds INR 2.2 H (0.9-1.1) APTT 40 H (21-31) Seconds PTT Ratio 1.5 Sodium 135 L (136-145) mmol/L Potassium 3.5 (3.5-5.1) mmol/L Chloride 100 (98-107) mmol/L Carbon Dioxide 25 (21-32) mmol/L Anion Gap 10 (3-11) BUN 19 (6-23) mg/dl Creatinine 1.50 H (0.6-1.4) mg/dl Est Cr Clr Drug Dosing 55.1 ml/min eGFR 51.67 BUN/Creatinine Ratio 12.7 (10-20) Glucose 123 H (70-99(Fasting)) mg/dl Calcium 9.0 (8.6-10.3) mg/dl Magnesium 1.7 (1.7-2.4) mg/dl Total Bilirubin 0.5 (0.2-1.0) mg/dl AST 51 H (13-39) U/L ALT 103 H (7-52) U/L Alkaline Phosphatase 93 (34-104) U/L Troponin I High Sens 11.1 (0-20) pg/ml Total Protein 8.5 H (6.0-8.3) gm/dl Albumin 3.5 (3.4-5.0) gm/dl Globulin 5.0 H (2.5-4.0) gm/dl Albumin/Globulin Ratio 0.7 L (0.9-2) Administered Medications Insulin Aspart (Insulin Aspart Per Unit Charge) 0 units SC ACHS KAVON Stop: 01/27/25 20:59 Last Admin: 12/28/24 23:11 Dose: Not Given Documented By: NRS Oxycodone HCl (Oxycodone Hcl Ir 5 Mg Tab (Immediate Release)) 10 mg PO Q6H PRN PRN Reason: Pain Stop: 01/11/25 22:26 Last Admin: 12/28/24 23:13 Dose: 10 mg Documented By: NRS Discontinued Medications Potassium Chloride (K Migue / Wtr) 10 meq in 100 mls @ 100 mls/hr IV Q1H KAVON Stop: 12/28/24 21:59 Last Infusion: 12/28/24 22:25 Dose: Infused Documented By: Admin: 12/28/24 21:12 Dose: 100 mls/hr Documented By: Infusion: 12/28/24 21:02 Dose: Infused Documented By: Admin: 12/28/24 20:02 Dose: 100 mls/hr Documented By: MAKENZIE Magnesium Sulfate/Dextrose (Magnesium Sulfate / D5w) 1 gm in 100 mls @ 50 mls/hr IV ONE ONE Stop: 12/28/24 21:49 Last Infusion: 12/28/24 22:25 Dose: Infused Documented By: Admin: 12/28/24 20:02 Dose: 50 mls/hr Documented By: MAKENZIE Daptomycin 900 mg/ Syringe 18 mls @ 9.5 mls/min IV NOW ONE; Protocol Stop: 12/28/24 22:01 Last Admin: 12/28/24 23:12 Dose: 9.5 mls/min Documented By: SINGH Potassium Chloride (Potassium Chloride Crtab 20 Meq Tabcr) 20 meq PO NOW STA Stop: 12/28/24 20:41 Last Admin: 12/28/24 21:12 Dose: 20 meq Documented By: MAKENZIE Imaging Data Attestation: I personally reviewed and interpreted this imaging study as follows: My Impression: 1 view chest x-ray was obtained in the emergency department. My interpretation is no free air or definite infiltrate, final report below. Radiologist's Impression: Chest X-Ray 12/28/24 18:20 Chest radiograph, one view History: Chest pain Comparison: None Findings: Single AP view of the chest performed. No focal consolidation or pleural effusion. No pneumothorax. The cardiomediastinal silhouette is within normal limits. Normal pulmonary vascularity. No evidence for lymphadenopathy. No visualized bony or soft tissue abnormality. Median sternotomy wires. Chronic right rib deformities. Impression: Normal chest radiograph Electronically signed by Mario Barbosa 12-28-2024 6:52 PM Discharge Plan Visit Data Chief Complaint: Arrhythmia/Palpitations Stated Complaint: HEART RHYTHM PROBLEMS, REF BY R ED Provider: Bang Maynard ED Midlevel Provider: Yvonne Melendez Discharge Problem: Paroxysmal A-fib, Heart palpitations Patient Disposition: Being Evaluated by Hospitalist Condition: Fair Discharge Instructions Interventions: ED Discharge Assessment Last Done: 12/28/24 21:25
[2024-12-28 19:20] LABS: Alanine Aminotransferase 103.0 U/L (7-52); Albumin Globulin Ratio 0.7 (0.9-2); Alkaline Phosphatase 93.0 U/L (34-104); Anion Gap 10.0 (3-11); Bilirubin,Total 0.5 mg/dl (0.2-1.0); Blood Urea Nitrogen 19.0 mg/dl (6-23); Calcium 9.0 mg/dl (8.6-10.3); Carbon Dioxide 25.0 mmol/L (21-32); Chloride 100.0 mmol/L (98-107); Creatinine Clr Calc Pharmacy 55.1 ml/min; Globulin 5.0 gm/dl (2.5-4.0); Glucose 123.0 mg/dl (70-99(Fasting)); Magnesium 1.7 mg/dl (1.7-2.4); Potassium 3.5 mmol/L (3.5-5.1); Sodium 135.0 mmol/L (136-145); Total Protein 8.5 gm/dl (6.0-8.3)
[2024-12-28 19:36] LABS: INR 2.2 (0.9-1.1); Partial Thromboplastin Time 40 Seconds (21-31); Prothrombin Time 22.7 Seconds (9.0-12.0)
[2024-12-28] MEDS: MAGNESIUM SULFATE / D5W 1 GM/100 ML BAG IV ONE (20:02)
[2024-12-28] MEDS: POTASSIUM CHLORIDE / WTR 10 MEQ/100 ML PLCT IV SCH (20:02)
--- NOTE | 2024-12-28 20:36 | History & Physical Report ---
Date of Service December 28, 2024 Assessment & Plan (1) Defibrillator discharge: Plan: History of infected ICD removal and placement of external defibrillator recently Firing of External defibrillator multiple times this morning [employer] Supervisor evaluation at home revealed frequent pauses and was advised to come to emergency room Patient remains free from any symptoms in the emergency room and hemodynamically stable Will consult cardiology/EP cardiology tomorrow morning He will be admitted to telemetry unit and electrolytes will be adjusted- given 20 mill equivalents KCl IV and also 1 g magnesium IV Troponin-11.1 Monitor electrolytes Possible frequent pauses EKG was in sinus rhythm with first-degree AV block with occasional premature ventricular complexes Rate of 73 and no significant pauses noted Will need evaluation of defibrillator- cardiology consult (2) History of mechanical aortic valve replacement: Plan: Has been on warfarin INR 2.2 and will continue warfarin (3) Hx of ascending aorta replacement: (4) MRSA bacteremia: Plan: History of MRSA bacteremia and infection of the ICD with removal on 12/07/2019 Was on intravenous vancomycin and oral rifampicin which was discontinued due to CARLOS and also abnormal liver function test Remains on intravenous daptomycin 950 mg IV daily which will be continued till January 17 and Doxycycline 100 mg twice daily from January 18 to be continued for life (5) CAD (coronary artery disease) of artery bypass graft: Plan: Denies any chest pain we will continue current medications (6) Systolic CHF: Plan: No acute CHF Will continue usual diuretics (7) Diabetes type 2: Plan: Has been on Lantus Will put him on sliding scale insulin coverage (8) CKD (chronic kidney disease): Plan: Creatinine remains stable DVT prophylaxis has been on Coumadin and INR 2.2 CODE STATUS full Discussed with the family members History of Present Illness Chief Complaint: Firing of external defibrillator multiple times this morning Primary Care Provider: Tera Upton 64-year-old male with past medical history significant for hyperlipidemia, history of CAD, status post CABG hypertension, history of septic shock, bicuspid aortic valve status post mechanical aortic valve replacement, thoracic aortic aneurysm repair, 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 He was recently in the hospital 12/24/2024 with CARLOS, electrolyte imbalance and nausea vomiting likely secondary to use of vancomycin and rifampicin. He was evaluated by infectious disease specialist and was sent home on 25 of December on intravenous daptomycin and he was doing fine following discharge from the hospital. This morning his external defibrillator fired multiple times and he contacted the cardiology service who noted to have occasional pauses and was advised to come to emergency room for observation. He remains free from any symptoms since in the emergency room and his labs including EKG remain fairly unremarkable. He was supplemented with intravenous potassium and also intravenous magnesium and was admitted to telemetry unit for continuation of care. Allergies Allergy/AdvReac Type Severity Reaction Status Date / Time Adilobk-AUG-[id number] Reductase AdvReac Severe SEVERE Verified 12/28/24 19:57 Inhibitor MUSCLE PAIN/CRAMPS nitroglycerin AdvReac Intermediate BLOOD Verified 12/28/24 19:57 PRESSURE BOTTOMED OUT Home Medications Medication Instructions Recorded Confirmed Type acetaminophen 325 mg tablet 650 mg PO Q4H PRN PAIN/FEVER 12/23/24 12/28/24 History (Tylenol) >100.5F amiodarone 200 mg tablet 200 mg PO DAILY 12/23/24 12/28/24 History aspirin 81 mg chewable tablet 81 mg PO DAILY 12/23/24 12/28/24 History calcium carbonate (Tums E-X) 300 mg PO Q8H PRN Heartburn 12/23/24 12/28/24 History doxycycline hyclate 100 mg capsule 100 mg PO BID 12/23/24 12/23/24 History ezetimibe 10 mg tablet 10 mg PO DAILY 12/23/24 12/28/24 History heparin lock flush (porcine) 10 10 unit IV BID 12/23/24 12/28/24 History unit/mL intravenous solution insulin glargine 100 unit/mL (3 80 unit subcut PM 12/23/24 12/28/24 History mL) subcutaneous pen (Lantus Solostar U-100 Insulin) levothyroxine 75 mcg tablet 75 mcg PO DAILYBB 12/23/24 12/28/24 History (Levoxyl) loratadine 10 mg tablet (Claritin) 10 mg PO DAILY 12/23/24 12/28/24 History magnesium chloride 64 mg 64 mg PO QPM 12/23/24 12/28/24 History (magnesium chloride) tablet,delayed release omega-3 fatty acids 1,000 mg 2,000 mg PO DAILY 12/23/24 12/28/24 History capsule pantoprazole 40 mg tablet,delayed 40 mg PO DAILY 12/23/24 12/28/24 History release semaglutide 0.25 mg or 0.5 mg (2 0.5 mg subcut WK 12/23/24 12/28/24 History mg/3 mL) subcutaneous pen injector (Ozempic) sodium chloride 0.9 % (flush) 10 ml IV DIRECTED 12/23/24 12/28/24 History spironolactone 25 mg tablet 25 mg PO DAILY 12/23/24 12/28/24 History warfarin 5 mg tablet 10 mg PO .SEE ATTACHED 12/23/24 12/28/24 History torsemide 20 mg tablet 20 mg PO DAILY #0 tabs 12/25/24 12/28/24 Rx daptomycin 500 mg intravenous 0 mg IV QAM 12/28/24 12/28/24 History solution simethicone 80 mg chewable tablet 80 mg PO Q6H PRN GAS OR NAUSEA 12/28/24 History warfarin 7.5 mg tablet 7.5 mg PO .SEE ATTACHED INSTR 12/28/24 12/28/24 History Past Med/Surg History Problem List (Updated 12/28/24 @ 20:32 by Eden Jefferson MD) CKD (chronic kidney disease) Diabetes type 2 Systolic CHF CAD (coronary artery disease) of artery bypass graft Defibrillator discharge Hx of ascending aorta replacement History of mechanical aortic valve replacement MRSA bacteremia Infection involving electrode lead of implantable cardioverter-defibrillator (ICD) Hypomagnesemia (Acute) Acute hypokalemia (Acute) Acute hyponatremia (Acute) CARLOS (acute kidney injury) (Acute) Social History Smoking Status: Never smoker Hx Alcohol Use: No Hx Substance Use: No Preferred Language: Iraqi Communication Ability: Effective Foreign Language Professor Required: Yes and No Beliefs That Will Affect Care: None Current Living Situation: Spouse Feels Safe at Home: Yes Assistive Devices: Cane Review of Systems Review of Systems: All systems reviewed and are unremarkable except as noted below Physical Exam Physical Exam: Lying in bed without any acute distress Constitutional: well developed and well nourished; not ill appearing Eyes: PERRL, conjunctivae normal, anicteric sclerae ENMT: external ear and nose normal, oropharynx normal Neck: trachea midline, no thyromegaly Respiratory: no respiratory distress Auscultation: lungs clear to auscultation bilaterally Cardiovascular: Rate/Rhythm: regular rate and regular rhythm; not tachycardic Heart Sounds: normal S1, normal S2 and + murmur Extremities: no edema Gastrointestinal (Abdomen): Inspection/Auscultation: normal bowel sounds; abdomen not distended Percussion/Palpation: abdomen soft; abdomen nontender Musculoskeletal: no acute arthritis involving any of the joint Neurologic: normal touch/pain/proprioception and moves all extremities; no focal motor deficits Psychiatric: A+Ox3, euthymic affect Lymphatic: no cervical or axillary lymphadenopathy Results & Data Results & Data Vital Signs (Past 12 Hours) Vital Signs Temp Pulse Pulse Resp BP BP Pulse Ox 12/28/24 19:58 78 12/28/24 19:45 71 15 97 12/28/24 19:30 141/83 H 12/28/24 18:38 73 19 158/86 H 97 12/28/24 18:19 12/28/24 18:15 36.3 C L 72 16 139/77 99 O2 Del Method 12/28/24 19:58 12/28/24 19:45 Room Air 12/28/24 19:30 12/28/24 18:38 Room Air 12/28/24 18:19 Room Air 12/28/24 18:15 Room Air Laboratory Results Short CBC 12/28/24 Range/Units 18:30 WBC 8.73 (4.8-10.8) K/ul Hgb 10.7 L (14.0-18.0) g/dl Hct 31.1 L (42.0-52.0) % Plt Count 218 (130-400) K/uL BMP 12/28/24 18:30 Sodium 135 L Potassium 3.5 Chloride 100 Carbon Dioxide 25 BUN 19 Creatinine 1.50 H Glucose 123 H Calcium 9.0 Liver Function 12/28/24 Range/Units 18:30 Total Bilirubin 0.5 (0.2-1.0) mg/dl AST 51 H (13-39) U/L ALT 103 H (7-52) U/L Alkaline Phosphatase 93 (34-104) U/L Albumin 3.5 (3.4-5.0) gm/dl Medications Administered Current Inpatient Medications Potassium Chloride (K Migue / Wtr) 10 meq in 100 mls @ 100 mls/hr IV Q1H KAVON Stop: 12/28/24 21:59 Last Admin: 12/28/24 20:02 Dose: 100 mls/hr Magnesium Sulfate/Dextrose (Magnesium Sulfate / D5w) 1 gm in 100 mls @ 50 mls/hr IV ONE ONE Stop: 12/28/24 21:49 Last Admin: 12/28/24 20:02 Dose: 50 mls/hr Code Status & VTE Plan VTE Prophylaxis Plan VTE Prophylaxis will be ordered: Yes
[2024-12-28] MEDS: POTASSIUM CHLORIDE CRTAB 20 MEQ TABCR PO STA (21:12)
[2024-12-28] MEDS ORDERED: ACETAMINOPHEN 325 MG TAB PO PRN (22:27)
[2024-12-28] MEDS ORDERED: CALCIUM CARBONATE 500 MG CHEWABLE TAB PO PRN (22:51)
[2024-12-28] MEDS: INSULIN ASPART PER UNIT CHARGE SC SCH (23:11)
[2024-12-28] MEDS: DAPTOmycin 900 MG in SYRINGE 0 ML IV ONE (23:12)
[2024-12-28] MEDS: LANTUS PER UNIT CHARGE SQ SCH (23:23)
[2024-12-28] MEDS: WARFARIN SOD 5 MG TAB PO SCH (23:57)
[2024-12-28] MEDS: WARFARIN SOD 2.5 MG TAB PO SCH (23:57)
[2024-12-29] MEDS: MAGNESIUM SULFATE / D5W 1 GM/100 ML BAG IV ONE (00:07)
[2024-12-29] MEDS: POTASSIUM CHLORIDE CRTAB 20 MEQ TABCR PO STA (00:07)
[2024-12-29] MEDS: LEVOTHYROXINE SODIUM 75 MCG TABLET PO SCH (05:24)
[2024-12-29 06:15] LABS: Hematocrit (blood only) 32.1 % (42.0-52.0); Hemoglobin 11.0 g/dl (14.0-18.0); Immature Granulocytes # (auto) 0.07 K/uL (0.01-0.20); Immature Granulocytes % (auto) 0.7 %; Mean Corpuscular Hemoglobin 29.3 pg (25.0-34.0); Mean Corpuscular Volume 85.6 fL (80.0-100.0); Platelet Count 191 K/uL (130-400); RDW Standard Deviation 44.8 fL (36.4-46.3); Red Blood Count 3.75 M/uL (4.70-6.10); White Blood Count 9.54 K/ul (4.8-10.8)
[2024-12-29 06:33] LABS: Alanine Aminotransferase 92.0 U/L (7-52); Albumin Globulin Ratio 0.7 (0.9-2); Alkaline Phosphatase 89.0 U/L (34-104); Anion Gap 6.0 (3-11); Bilirubin,Total 0.5 mg/dl (0.2-1.0); Blood Urea Nitrogen 18.0 mg/dl (6-23); Calcium 8.8 mg/dl (8.6-10.3); Carbon Dioxide 28.0 mmol/L (21-32); Chloride 102.0 mmol/L (98-107); Creatinine Clr Calc Pharmacy 53.4 ml/min; Globulin 4.6 gm/dl (2.5-4.0); Glucose 124.0 mg/dl (70-99(Fasting)); Magnesium 2.2 mg/dl (1.7-2.4); Potassium 3.6 mmol/L (3.5-5.1); Sodium 136.0 mmol/L (136-145); Total Protein 8.0 gm/dl (6.0-8.3)
[2024-12-29 06:44] LABS: INR 2.1 (0.9-1.1); Prothrombin Time 21.2 Seconds (9.0-12.0)
[2024-12-29] MEDS: ASPIRIN 81 MG CHEW PO SCH (08:20)
[2024-12-29] MEDS: OMEGA-3 (PURIFIED FISH OIL) 1 GM CAP PO SCH (08:20)
[2024-12-29] MEDS: AMIODARONE 200 MG TAB PO SCH ×2 (08:20→21:07)
[2024-12-29] MEDS: EZETIMIBE 10 MG TAB PO SCH (08:21)
[2024-12-29] MEDS: SPIRONOLACTONE 25 MG TAB PO SCH (08:21)
[2024-12-29] MEDS: LORATADINE 10 MG TAB PO SCH (08:21)
[2024-12-29] MEDS: MAGNESIUM CHLORIDE W/CALCIUM 64MG DELAYED REL TAB PO SCH (08:21)
[2024-12-29] MEDS: TORSEMIDE 20 MG TAB PO SCH (08:21)
[2024-12-29] MEDS: POTASSIUM CHLORIDE / WTR 10 MEQ/100 ML PLCT IV SCH (08:35)
--- NOTE | 2024-12-29 12:48 | Electrocardiogram Report ---
Test Reason : Blood Pressure : */* mmHG Vent. Rate : 76 BPM Atrial Rate : 293 BPM P-R Int : * ms QRS Dur : 106 ms QT Int : 376 ms P-R-T Axes : 54 53 211 degrees QTcB Int : 423 ms Atrial flutter with variable A-V block with premature ventricular or aberrantly conducted complexes Abnormal ECG When compared with ECG of 28-Dec-2024 23:31, (unconfirmed) No significant change was found Confirmed by Mario Sandoval ([id number]) on 12/29/2024 12:48:14 PM Referred By: Angelic Holguin Confirmed By: Mario Sandoval
--- NOTE | 2024-12-29 12:49 | Electrocardiogram Report ---
Test Reason : Blood Pressure : */* mmHG Vent. Rate : 69 BPM Atrial Rate : 69 BPM P-R Int : 208 ms QRS Dur : 110 ms QT Int : 396 ms P-R-T Axes : 54 56 233 degrees QTcB Int : 424 ms Normal sinus rhythm Possible Left atrial enlargement Abnormal ECG When compared with ECG of 25-Dec-2024 05:26, Premature ventricular complexes are no longer Present T wave inversion now evident in Inferior leads Confirmed by Mario Sandoval ([id number]) on 12/29/2024 12:49:01 PM Referred By: Angelic Holguin Confirmed By: Mario Sandoval
--- NOTE | 2024-12-29 12:51 | Electrocardiogram Report ---
Test Reason : Blood Pressure : */* mmHG Vent. Rate : 71 BPM Atrial Rate : 293 BPM P-R Int : * ms QRS Dur : 108 ms QT Int : 398 ms P-R-T Axes : 51 50 233 degrees QTcB Int : 432 ms Atrial flutter with variable A-V block Abnormal ECG When compared with ECG of 28-Dec-2024 18:25, (unconfirmed) Atrial flutter has replaced Sinus rhythm Confirmed by Mario Sandoval ([id number]) on 12/29/2024 12:51:21 PM Referred By: Angelic Holguin Confirmed By: Mario Sandoval
[2024-12-29] MEDS ORDERED: AMIODARONE IV BOLUS & DRIP IV STA (12:56)
[2024-12-29] MEDS ORDERED: 0.2 MICRON FILTER SET 1 EACH IV STA (12:56)
[2024-12-29] MEDS ORDERED: STAT IV Infusion **Titration per Protocol STA (12:56)
[2024-12-29] MEDS: AMIODARONE / D5W 150 MG/100 ML BAG IV STA (13:24)
[2024-12-29] MEDS: AMIODARONE / D5W 360 MG/200 ML BAG IV ONE (13:39)
[2024-12-29] MEDS: WARFARIN SOD 10 MG TAB PO SCH (15:31)
--- NOTE | 2024-12-29 15:31 | Cardiology Consultation ---
Date of Consultation December 29, 2024 Assessment & Plan (1) Paroxysmal A-fib: (2) Paroxysmal VT: (3) MRSA bacteremia: (4) History of mechanical aortic valve replacement: Plan Patient with recent admissions for sepsis/bacteremia acute infection of his ICD requiring extraction in November 2024. Now on IV antibiotics for 6 weeks and wearing ZOLL defib LifeVest. Yesterday Life vest was alarming and patient "aborted" the shocks as he had no significant symptoms. The telemetry strips were reviewed by EP which demonstrated wide complex tachycardia - possible atrial flutter with aberrancy vs VT. ER recommended. Upon arrival, patient was in atrial fibrillation with controlled rates. Per review of recent EKG"s = afib was considered persistent over the last few months. -He reports compliance with all oral medications. -Amiodarone continued upon arrival at 200 mg daily. -Overnight patient converted to NSR. Then today he had recurrent episodes of PAF. -One episode of wide complex tachy last night likely consistent with afib RVR with aberrancy. -Will attempt to maintain NSR and reload Amiodarone bolus with gtt. -Continue amiodarone 200 mg BID. -replace magnesium with goal 2-3 -replace potassium with goal 4-5 Recent bacteremia -JUDIE was negative for endocarditis in November 2024 -ICD removed -Continue IV antibiotics per ID for 6 weeks Mechanical AVR Continue anticoagulation with Coumadin. INR goal is 2.5-3.5 Start IV heparin due to subtherapeutic INR. HFrEF -appears euvolemic -continue torsemide and spironolactone -JOSEFINA was held in november 2024 upon discharge due to hypotension Further recommendations pending discussion/evaluation with Dr. Franco Case discussed with Dr. Franco I spent a total of 60 minutes on the date of service in preparation, delivery, and documentation of the care provided to this patient, excluding any time spent in the performance of separately billed services. Milly Luong PA-C Department of Cardiology, [facility] This chart was completed in part utilizing Speech Voice Recognition Software. Grammatical errors, random word insertions, pronoun errors, and incomplete sentences are an occasional consequence of this system due to software limitations, ambient noise, and hardware issues. Any formal questions or concerns about the content, text, or information contained within the body of this dictation should be directly addressed to the provider for clarification. Supervising Physician Co-Signing Physician Notes I have personally performed a history and physical examination on the patient. I have reviewed the advance practitioner's documentation, and I agree with, and take responsibility for the plan of care. 64-year-old male with complex history noted above, LVEF 44%, presents with alarms via LifeVest due to episodes of wide complex tachycardia. Rhythm strips suggesting likely atrial fibrillation with aberrant conduction. Periods of atrial fibrillation/flutter as well as sinus rhythm noted since admission with underlying incomplete left bundle branch block. INR is subtherapeutic today. Recommend IV amiodarone infusion. Titrate oral amiodarone to 200 mg twice daily and attempt to maintain sinus rhythm. Initiate IV anticoagulation with heparin due to subtherapeutic INR. Repeat PT/INR in AM. Continue telemetry monitoring. I spent a total of 35 minutes on the date of service in preparation, delivery, and documentation of the care provided to this patient, excluding any time spent in the performance of separately billed services. Paul Franco DO, [facility] History of Present Illness Reason for Consultation: PAF; wide complex tachycardia Requesting Physician: Clari Bah Attending Physician: Dr. Franco History of Present Illness Patient is a complex 64 year old male admitted to [facility] yesterday after having possible arrhythmias on his Life Vest. patient contacted the cardiology office yesterday as his life vest was "alarming" but he was aborting the alerts as he felt "ok". No dizziness, syncope or near syncope. He was contacted by EP provider and strips reviewed which demonstrated wide complex tachycardia that was possibly VT vs afib with aberrancy. Patient reported feeling "not well" yesterday and was worried his potassium was low. Due to symptoms and arrhythmias, he was sent to ER for evaluation. Upon arrival to the ER he was found to have afib with controlled rates. He reported compliance with amiodarone 200 mg daily. Around 4:30 AM patient converted from afib to NSR. During admission he has been flipping in and out of afib with variable rates and conduction delay consistent with LBBB at times. At time of consult this morning, patient was feeling better. He was NSR at the time. No recurrent alerts from his life vest. No chest pain or SOB. He is frustrated that his potassium levels are often low. He eats "alot of bananas". Wants a potassium pill to take daily. Otherwise denies acute cardiac complaints. He remains on IV antibiotic therapy since his ICD was extracted due to bacteremia. 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 with patch repair under circulatory arrest and Endoscopic Vein harvesting of the RGSV for vein graft from SVG to RCA on 05/24/19 [id number] cardiac arrest 10/2024 ROSC obtained with 3 shocks (from AED) in the field, VT noted prior to hospital presentation DM II S/p ICD 11/12/24 subsequently extracted 12/06/24 secondary to bacteremia; currently wearing a lifevest HTN HLD Persistent likely permanent A Fib, [id number] (CAD, DM, HTN) LBBB (intermittent) Allergies Allergy/AdvReac Type Severity Reaction Status Date / Time [id number] Reductase AdvReac Severe SEVERE Verified 12/28/24 19:57 Inhibitor MUSCLE PAIN/CRAMPS nitroglycerin AdvReac Intermediate BLOOD Verified 12/28/24 19:57 PRESSURE BOTTOMED OUT Home Medications Medication Instructions Recorded Confirmed Type acetaminophen 325 mg tablet 650 mg PO Q4H PRN PAIN/FEVER 12/23/24 12/28/24 History (Tylenol) >100.5F amiodarone 200 mg tablet 200 mg PO DAILY 12/23/24 12/28/24 History aspirin 81 mg chewable tablet 81 mg PO DAILY 12/23/24 12/28/24 History calcium carbonate (Tums E-X) 300 mg PO Q8H PRN Heartburn 12/23/24 12/28/24 History doxycycline hyclate 100 mg capsule 100 mg PO BID 12/23/24 12/23/24 History ezetimibe 10 mg tablet 10 mg PO DAILY 12/23/24 12/28/24 History heparin lock flush (porcine) 10 10 unit IV BID 12/23/24 12/28/24 History unit/mL intravenous solution insulin glargine 100 unit/mL (3 80 unit subcut PM 12/23/24 12/28/24 History mL) subcutaneous pen (Lantus Solostar U-100 Insulin) levothyroxine 75 mcg tablet 75 mcg PO DAILYBB 12/23/24 12/28/24 History (Levoxyl) loratadine 10 mg tablet (Claritin) 10 mg PO DAILY 12/23/24 12/28/24 History magnesium chloride 64 mg 64 mg PO QPM 12/23/24 12/28/24 History (magnesium chloride) tablet,delayed release omega-3 fatty acids 1,000 mg 2,000 mg PO DAILY 12/23/24 12/28/24 History capsule pantoprazole 40 mg tablet,delayed 40 mg PO DAILY 12/23/24 12/28/24 History release semaglutide 0.25 mg or 0.5 mg (2 0.5 mg subcut WK 12/23/24 12/28/24 History mg/3 mL) subcutaneous pen injector (Ozempic) sodium chloride 0.9 % (flush) 10 ml IV DIRECTED 12/23/24 12/28/24 History spironolactone 25 mg tablet 25 mg PO DAILY 12/23/24 12/28/24 History warfarin 5 mg tablet 10 mg PO .SEE ATTACHED 12/23/24 12/28/24 History torsemide 20 mg tablet 20 mg PO DAILY #0 tabs 12/25/24 12/28/24 Rx daptomycin 500 mg intravenous 0 mg IV QAM 12/28/24 12/28/24 History solution simethicone 80 mg chewable tablet 80 mg PO Q6H PRN GAS OR NAUSEA 12/28/24 12/28/24 History warfarin 7.5 mg tablet 7.5 mg PO .SEE ATTACHED INSTR 12/28/24 12/28/24 History Patient History Social History Smoking Status: Former smoker Tobacco Type: Cigarettes Cigarettes Per Day: 2; Smoking End Date: 2023; Second Hand Exposure: No; Do You Dip or Chew Tobacco: No; Hx Alcohol Use: No Hx Substance Use: No Preferred Language: Burkinan Communication Ability: Effective School Custodian Required: No Beliefs That Will Affect Care: None Current Living Situation: Spouse Other Information That Helps Us Care for You: No Feels Safe at Home: Yes Safety Concerns: Feels Safe At This Time Assistive Devices: Cane Review of Systems Review of Systems: All systems reviewed & are unremarkable except as noted in HPI & below Physical Exam Constitutional: WD/WN, vitals as above + obese; no acute distress Neck: + thick neck Respiratory: normal respiratory effort, lungs clear to auscultation Cardiovascular: Rate/Rhythm: regular rate and regular rhythm Heart Sounds: + murmur (II/ systolic murmur) Vessels: no JVD Extremities: no edema Gastrointestinal (Abdomen): normal bowel sounds, soft, nontender, no hepatosplenomegaly Neurologic: PERRL, EOMI, accommodation nl, no face palsy, no dysarthria Results & Data Vital Signs (Past 12 Hours) Vital Signs Temp Pulse Pulse Resp BP Pulse Ox O2 Del Method 12/29/24 13:35 72 12/29/24 10:39 36.4 C L 61 18 125/76 97 Room Air 12/29/24 07:17 36.8 C 71 18 124/79 97 Room Air 12/29/24 05:47 68 12/29/24 03:45 36.6 C 62 17 109/69 96 Room Air Laboratory Results Cardiac Enzymes 12/28/24 12/29/24 Range/Units 18:30 05:18 AST 51 H 51 H (13-39) U/L Troponin I High Sens 11.1 12.6 (0-20) pg/ml Coagulation 12/28/24 12/29/24 Range/Units 18:30 05:18 PT 22.7 H 21.2 H (9.0-12.0) Seconds APTT 40 H (21-31) Seconds CBC 12/28/24 12/29/24 Range/Units 18:30 05:18 WBC 8.73 9.54 (4.8-10.8) K/ul RBC 3.70 L 3.75 L (4.70-6.10) M/uL Hgb 10.7 L 11.0 L (14.0-18.0) g/dl Hct 31.1 L 32.1 L (42.0-52.0) % Plt Count 218 191 (130-400) K/uL Neut # (Auto) 5.77 6.07 (1.40-6.50) K/uL Lymph # (Auto) 1.92 2.31 (1.20-3.40) K/uL [place] # (Auto) 0.68 H 0.72 H (0.11-0.59) K/uL Eos # (Auto) 0.18 0.27 (0.00-0.50) K/uL Baso # (Auto) 0.09 0.10 (0.00-0.20) K/uL Comprehensive Metabolic Panel 12/28/24 12/29/24 Range/Units 18:30 05:18 Sodium 135 L 136 (136-145) mmol/L Potassium 3.5 3.6 (3.5-5.1) mmol/L Chloride 100 102 (98-107) mmol/L Carbon Dioxide 25 28 (21-32) mmol/L BUN 19 18 (6-23) mg/dl Creatinine 1.50 H 1.55 H (0.6-1.4) mg/dl Glucose 123 H 124 H (70-99(Fasting)) mg/dl Calcium 9.0 8.8 (8.6-10.3) mg/dl AST 51 H 51 H (13-39) U/L ALT 103 H 92 H (7-52) U/L Alkaline Phosphatase 93 89 (34-104) U/L Total Protein 8.5 H 8.0 (6.0-8.3) gm/dl Albumin 3.5 3.4 (3.4-5.0) gm/dl Intake and Output 12/29/24 12/29/24 12/29/24 06:59 14:59 22:59 Intake Total 100 / 400 286.667 / 6527.940 7661 / 1456.667 Output Total 1400 / 1400 575 / 1375 800 / 1375 Balance -1300 / -1000 -288.333 / 81.667 370 / 81.667 Intake: IV 100 / 400 186.667 / 286.667 100 / 286.667 Amiodarone / D5w 150 mg In 100 100 / 100 ml @ 600 mls/hr IV NOW STA Rx#: [id number] Magnesium Sulfate / D5w 1 gm In 100 / 100 100 ml @ 50 mls/hr IV ONE ONE Rx#:[id number] Potassium Chloride / Wtr 10 meq 186.667 / 186.667 In 100 ml @ 100 mls/hr IV Q1H KAVON Rx#:[id number] Oral 100 / 1170 1070 / 1170 Output: Urine 1400 / 1400 575 / 1375 800 / 1375 Other: Weight 89.9 kg Weight Measurement Method Built in [facility] Diagnostic Findings Telemetry reviewed: Atrial fib with controlled rates. Short episodes of wide complex tachycardia, likely consistent with afib with aberrancy and underlying intermittent LBBB. He converted from Afib to NSR this morning around 4:30 AM. This afternoon he had recurrent bouts of atrial fibrillation/flutter EKG on arrival: Atrial flutter at 76 bmp with variable AV block ST/T wave abnormality in anterolateral leads ZOLL strips reviewed - likely consistent with atrial flutter RVR with aberrancy Chest X-Ray 12/28/24 18:20 Chest radiograph, one view History: Chest pain Comparison: None Findings: Single AP view of the chest performed. No focal consolidation or pleural effusion. No pneumothorax. The cardiomediastinal silhouette is within normal limits. Normal pulmonary vascularity. No evidence for lymphadenopathy. No visualized bony or soft tissue abnormality. Median sternotomy wires. Chronic right rib deformities. Impression: Normal chest radiograph Electronically signed by Mario Barbosa 12-28-2024 6:52 PM Outpatient data reviewed: JUDIE report reviewed dated 12/06/24 Interpretation Summary The examination is adequate to evaluate the referral indication. The qualitative LV ejection fraction is 40-44% (mildly reduced).There is diffuse hypokinesis. There is an aortic valve bileaflet disc ([place] type) mechanical prosthesis present. There is moderate mitral annular calcification. Mild mitral regurgitation is present. Mild tricuspid regurgitation is present. There is a pacemaker wire in the right ventricle. No significant thickening or vegetation seen. There are no valvular vegetations, intracardiac masses or significant valvular regurgitation on this good quality echo. Medications Administered Current Inpatient Medications Acetaminophen (Acetaminophen 325 Mg Tab) 650 mg PO Q4H PRN PRN Reason: PAIN/FEVER >100.5F Stop: 01/27/25 22:26 Amiodarone HCl (Amiodarone 200 Mg Tab) 200 mg PO BID KAVON Stop: 01/28/25 20:59 Aspirin (Aspirin 81 Mg Chew) 81 mg PO DAILY KAVON Stop: 01/28/25 08:59 Last Admin: 12/29/24 08:20 Dose: 81 mg Calcium Carbonate (Calcium Carbonate 500 Mg Chewable Tab) 500 mg PO Q8H PRN PRN Reason: Heartburn Stop: 01/27/25 22:50 Ezetimibe (Ezetimibe 10 Mg Tab) 10 mg PO DAILY KAVON Stop: 01/28/25 08:59 Last Admin: 12/29/24 08:21 Dose: 10 mg Fish Oil ([place]-3 (Purified Fish Oil) 1 Gm Cap) 1 cap PO DAILY KAVON Stop: 01/28/25 08:59 Last Admin: 12/29/24 08:20 Dose: 1 cap Heparin Sodium (Beef Lung) (Heparin 10 Unit/Ml 5 Ml Flush) 10 ml FLUSH BID KAVON Stop: 01/28/25 08:59 Last Admin: 12/29/24 08:35 Dose: 10 ml Daptomycin 850 mg/ Syringe 17 mls @ 9.5 mls/min IV Q24H KAVON; Protocol Stop: 01/12/25 21:59 Amiodarone HCl/Dextrose (Nexterone / D5w) 360 mg in 200 mls @ 33.333 mls/hr IV ONE ONE Stop: 12/29/24 19:05 Last Admin: 12/29/24 13:39 Dose: 1 mg/min, 33.3 mls/hr Amiodarone HCl/Dextrose (Nexterone / D5w) 360 mg in 200 mls @ 16.667 mls/hr IV .Q12H KAVON Stop: 01/28/25 18:59 Insulin Aspart (Insulin Aspart Per Unit Charge) 0 units SC ACHS KAVON Stop: 01/27/25 20:59 Last Admin: 12/29/24 12:56 Dose: 6 units Insulin Glargine (Lantus Per Unit Charge) 80 units SQ PM KAVON Stop: 01/27/25 22:44 Last Admin: 12/28/24 23:23 Dose: 80 units Levothyroxine Sodium (Levothyroxine Sodium 75 Mcg Tablet) 75 mcg PO DAILYBB KAVON Stop: 01/28/25 06:29 Last Admin: 12/29/24 05:24 Dose: 75 mcg Loratadine (Loratadine 10 Mg Tab) 10 mg PO DAILY KAVON Stop: 01/28/25 08:59 Last Admin: 12/29/24 08:21 Dose: 10 mg Magnesium Chloride (Magnesium Chloride W/Calcium 64mg Delayed Rel Tab) 64 mg PO DAILY KAVON Stop: 01/28/25 08:59 Last Admin: 12/29/24 08:21 Dose: 64 mg Oxycodone HCl (Oxycodone Hcl Ir 5 Mg Tab (Immediate Release)) 10 mg PO Q6H PRN PRN Reason: Pain Stop: 01/11/25 22:26 Last Admin: 12/29/24 13:11 Dose: 10 mg Pantoprazole Sodium (Pantoprazole 40 Mg Tab) 40 mg PO DAILY [facility] Stop: 01/28/25 08:59 Last Admin: 12/29/24 08:21 Dose: 40 mg Potassium Chloride (Potassium Chloride Crtab 20 Meq Tabcr) 20 meq PO QAM [facility] Stop: 01/28/25 15:59 Spironolactone (Spironolactone 25 Mg Tab) 25 mg PO DAILY [facility] Stop: 01/28/25 08:59 Last Admin: 12/29/24 08:21 Dose: 25 mg Torsemide (Torsemide 20 Mg Tab) 20 mg PO DAILY [facility] Stop: 01/28/25 08:59 Last Admin: 12/29/24 08:21 Dose: 20 mg Warfarin Sodium (Warfarin Sod 5 Mg Tab) 5 mg PO [email or web address] [facility] Stop: 01/27/25 22:26 Last Admin: 12/28/24 23:57 Dose: 5 mg Warfarin Sodium (Warfarin Sod 2.5 Mg Tab) 2.5 mg PO [email or web address] [facility] Stop: 01/27/25 22:59 Last Admin: 12/28/24 23:57 Dose: 2.5 mg Warfarin Sodium (Warfarin Sod 10 Mg Tab) 10 mg PO [email or web address] [facility] Stop: 01/28/25 15:59 Last Admin: 12/29/24 15:31 Dose: 10 mg PG Care Time/CCT Total # of Minutes Spent Total Time Spent with Patient: Total time spent is greater than 50% in coordination of care (as documented) at patient's floor/unit and/or counseling patient: 60 minutes Coding Level of Care Code 54814 INT INP/OBS CARE 3/75MIN Diagnoses Paroxysmal A-fib I48.0 Paroxysmal VT I47.20 MRSA bacteremia R78.81; B95.62 History of mechanical aortic valve replacement Z95.2
[2024-12-29] MEDS: HEPARIN 25000 UNIT/500 ML D5W 25,000 UNITS/500 ML BAG IV SCH (17:12)
[2024-12-29] MEDS: HEPARIN SOD (PORCINE) 1000 UNIT/ML IV ONE (17:12)
[2024-12-29] MEDS: Heparin IV Adult Wt-Based Standard w/ INITIAL Bolus Protocol IV STA (17:13)
[2024-12-29] MEDS: POTASSIUM CHLORIDE CRTAB 20 MEQ TABCR PO SCH (17:20)
--- NOTE | 2024-12-29 18:19 | Hospitalist Progress Note ---
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 Rhythm strips suggesting likely atrial fibrillation with aberrant conduction. Periods of atrial fibrillation/flutter as well as sinus rhythm not ed since admission with underlying incomplete left bundle branch block. Started IV amiodarone infusion. Titrate oral amiodarone to 200 mg twice daily and attempt to maintain sinus rhythm. Initiate IV anticoagulation with heparin due to subtherapeutic INR. Repeat PT/INR in AM. Continue telemetry monitoring. 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 Was on intravenous vancomycin and oral rifampicin which was discontinued due to CARLOS and also abnormal liver function test Remains on intravenous daptomycin 950 mg IV daily which will be continued till January 17 and Doxycycline 100 mg twice daily from January 18 to be continued for life (5) CAD (coronary artery disease) of artery bypass graft: Plan: Denies any chest pain - continue current medications, as per cardiology (6) Systolic CHF: Plan: No acute CHF - continue diuretics, as per cardiology (7) Diabetes type 2: Plan: Has been on Lantus - sliding scale insulin coverage (8) CKD (chronic kidney disease): Plan: - Creatinine remains stable cont. to monitor DVT prophylaxis Coumadin/heparin CODE STATUS full Admission and Anticipated Discharge Date Admission Date: December 28, 2024 Subjective Pt seen in follow up Recently discharged from hospital w/ Life vest Presents in ED after his Life vest was giving him "alarms", and discussed this w/ outpt cardiology Currently sitting up in bed in [facility], overall says he feels well. Currently denies chest pain, shortness of breath, also denies any dizziness, fever, chills Review of Systems Review of Systems: All systems reviewed & are unremarkable except as noted in Subjective Physical Exam Physical Exam: Physical Exam: Constitutional: well developed and well nourished M in NAD Eyes: PERRL, conjunctiva e normal, anicteri c sclerae ENMT: external ear and n ose normal, oropha rynx normal Neck: supple Respiratory: no respiratory dis tress Auscultatio n: lungs clear to auscultation bilat erally Cardiovascular: Rate/Rhythm: regul ar rate and regula r rhythm;+ murmur Extremities: no e jim Gastrointestinal ( Abdomen): normal bowel sound s; abdomen soft no t distended, nonte nder Musculoskeletal: moves extremities Neurologic: awake, alert, answ ers appropriately, speech fluent, no facial asymmetry, moves extremities Results & Data Results & Data Vital Signs (Past 12 Hours) Vital Signs Temp Pulse Pulse Resp BP Pulse Ox O2 Del Method 12/29/24 15:42 36.3 C L 87 18 123/73 98 Room Air 12/29/24 13:35 72 12/29/24 10:39 36.4 C L 61 18 125/76 97 Room Air 12/29/24 07:17 36.8 C 71 18 124/79 97 Room Air Laboratory Results 12/29/24 12/29/24 12/29/24 Range/Units 16:41 11:56 07:53 WBC (4.8-10.8) K/ul RBC (4.70-6.10) M/uL Hgb (14.0-18.0) g/dl Hct (42.0-52.0) % MCV (80.0-100.0) fL MCH (25.0-34.0) pg MCHC (32.0-36.0) g/dL RDW Std Deviation (36.4-46.3) fL RDW Coeff of Yanelis (11.5-14.5) % Plt Count (130-400) K/uL MPV (9.4-12.4) fL Immature Gran % (Auto) % Neut % (Auto) % Lymph % (Auto) % Summit % (Auto) % Eos % (Auto) % Baso % (Auto) % Neut # (Auto) (1.40-6.50) K/uL Lymph # (Auto) (1.20-3.40) K/uL Summit # (Auto) (0.11-0.59) K/uL Eos # (Auto) (0.00-0.50) K/uL Baso # (Auto) (0.00-0.20) K/uL Immature Gran # (Auto) (0.01-0.20) K/uL PT (9.0-12.0) Seconds INR (0.9-1.1) APTT (21-31) Seconds PTT Ratio Sodium (136-145) mmol/L Potassium (3.5-5.1) mmol/L Chloride (98-107) mmol/L Carbon Dioxide (21-32) mmol/L Anion Gap (3-11) BUN (6-23) mg/dl Creatinine (0.6-1.4) mg/dl Est Cr Clr Drug Dosing ml/min eGFR BUN/Creatinine Ratio (10-20) Glucose (70-99(Fasting)) mg/dl POC Glucose 174 H 168 H 156 H (70-99) mg/dl Calcium (8.6-10.3) mg/dl Phosphorus (2.5-4.9) mg/dl Magnesium (1.7-2.4) mg/dl Total Bilirubin (0.2-1.0) mg/dl AST (13-39) U/L ALT (7-52) U/L Alkaline Phosphatase (34-104) U/L Troponin I High Sens (0-20) pg/ml Total Protein (6.0-8.3) gm/dl Albumin (3.4-5.0) gm/dl Globulin (2.5-4.0) gm/dl Albumin/Globulin Ratio (0.9-2) 12/29/24 12/29/24 12/28/24 Range/Units 05:18 02:22 22:00 WBC 9.54 (4.8-10.8) K/ul RBC 3.75 L (4.70-6.10) M/uL Hgb 11.0 L (14.0-18.0) g/dl Hct 32.1 L (42.0-52.0) % MCV 85.6 (80.0-100.0) fL MCH 29.3 (25.0-34.0) pg MCHC 34.3 (32.0-36.0) g/dL RDW Std Deviation 44.8 (36.4-46.3) fL RDW Coeff of Yanelis 14.6 H (11.5-14.5) % Plt Count 191 (130-400) K/uL MPV 8.8 L (9.4-12.4) fL Immature Gran % (Auto) 0.7 % Neut % (Auto) 63.8 % Lymph % (Auto) 24.2 % Summit % (Auto) 7.5 % Eos % (Auto) 2.8 % Baso % (Auto) 1.0 % Neut # (Auto) 6.07 (1.40-6.50) K/uL Lymph # (Auto) 2.31 (1.20-3.40) K/uL Summit # (Auto) 0.72 H (0.11-0.59) K/uL Eos # (Auto) 0.27 (0.00-0.50) K/uL Baso # (Auto) 0.10 (0.00-0.20) K/uL Immature Gran # (Auto) 0.07 (0.01-0.20) K/uL PT 21.2 H (9.0-12.0) Seconds INR 2.1 H (0.9-1.1) APTT (21-31) Seconds PTT Ratio Sodium 136 (136-145) mmol/L Potassium 3.6 (3.5-5.1) mmol/L Chloride 102 (98-107) mmol/L Carbon Dioxide 28 (21-32) mmol/L Anion Gap 6 (3-11) BUN 18 (6-23) mg/dl Creatinine 1.55 H (0.6-1.4) mg/dl Est Cr Clr Drug Dosing 53.4 ml/min eGFR 49.67 BUN/Creatinine Ratio 11.6 (10-20) Glucose 124 H (70-99(Fasting)) mg/dl POC Glucose 262 H 142 H (70-99) mg/dl Calcium 8.8 (8.6-10.3) mg/dl Phosphorus 3.4 (2.5-4.9) mg/dl Magnesium 2.2 (1.7-2.4) mg/dl Total Bilirubin 0.5 (0.2-1.0) mg/dl AST 51 H (13-39) U/L ALT 92 H (7-52) U/L Alkaline Phosphatase 89 (34-104) U/L Troponin I High Sens 12.6 (0-20) pg/ml Total Protein 8.0 (6.0-8.3) gm/dl Albumin 3.4 (3.4-5.0) gm/dl Globulin 4.6 H (2.5-4.0) gm/dl Albumin/Globulin Ratio 0.7 L (0.9-2) 12/28/24 Range/Units 18:30 WBC 8.73 (4.8-10.8) K/ul RBC 3.70 L (4.70-6.10) M/uL Hgb 10.7 L (14.0-18.0) g/dl Hct 31.1 L (42.0-52.0) % MCV 84.1 (80.0-100.0) fL MCH 28.9 (25.0-34.0) pg MCHC 34.4 (32.0-36.0) g/dL RDW Std Deviation 43.7 (36.4-46.3) fL RDW Coeff of Yanelis 14.4 (11.5-14.5) % Plt Count 218 (130-400) K/uL MPV 9.1 L (9.4-12.4) fL Immature Gran % (Auto) 1.0 % Neut % (Auto) 66.1 % Lymph % (Auto) 22.0 % Summit % (Auto) 7.8 % Eos % (Auto) 2.1 % Baso % (Auto) 1.0 % Neut # (Auto) 5.77 (1.40-6.50) K/uL Lymph # (Auto) 1.92 (1.20-3.40) K/uL Summit # (Auto) 0.68 H (0.11-0.59) K/uL Eos # (Auto) 0.18 (0.00-0.50) K/uL Baso # (Auto) 0.09 (0.00-0.20) K/uL Immature Gran # (Auto) 0.09 (0.01-0.20) K/uL PT 22.7 H (9.0-12.0) Seconds INR 2.2 H (0.9-1.1) APTT 40 H (21-31) Seconds PTT Ratio 1.5 Sodium 135 L (136-145) mmol/L Potassium 3.5 (3.5-5.1) mmol/L Chloride 100 (98-107) mmol/L Carbon Dioxide 25 (21-32) mmol/L Anion Gap 10 (3-11) BUN 19 (6-23) mg/dl Creatinine 1.50 H (0.6-1.4) mg/dl Est Cr Clr Drug Dosing 55.1 ml/min eGFR 51.67 BUN/Creatinine Ratio 12.7 (10-20) Glucose 123 H (70-99(Fasting)) mg/dl POC Glucose (70-99) mg/dl Calcium 9.0 (8.6-10.3) mg/dl Phosphorus (2.5-4.9) mg/dl Magnesium 1.7 (1.7-2.4) mg/dl Total Bilirubin 0.5 (0.2-1.0) mg/dl AST 51 H (13-39) U/L ALT 103 H (7-52) U/L Alkaline Phosphatase 93 (34-104) U/L Troponin I High Sens 11.1 (0-20) pg/ml Total Protein 8.5 H (6.0-8.3) gm/dl Albumin 3.5 (3.4-5.0) gm/dl Globulin 5.0 H (2.5-4.0) gm/dl Albumin/Globulin Ratio 0.7 L (0.9-2) Medications Administered Current Inpatient Medications Acetaminophen (Acetaminophen 325 Mg Tab) 650 mg PO Q4H PRN PRN Reason: PAIN/FEVER >100.5F Stop: 01/27/25 22:26 Amiodarone HCl (Amiodarone 200 Mg Tab) 200 mg PO BID KAVON Stop: 01/28/25 20:59 Aspirin (Aspirin 81 Mg Chew) 81 mg PO DAILY KAVON Stop: 01/28/25 08:59 Last Admin: 12/29/24 08:20 Dose: 81 mg Calcium Carbonate (Calcium Carbonate 500 Mg Chewable Tab) 500 mg PO Q8H PRN PRN Reason: Heartburn Stop: 01/27/25 22:50 Ezetimibe (Ezetimibe 10 Mg Tab) 10 mg PO DAILY [facility], [facility]1983 Stop: 01/28/25 08:59 Last Admin: 12/29/24 08:21 Dose: 10 mg Fish Oil ([place]-3 (Purified Fish Oil) 1 Gm Cap) 1 cap PO DAILY KAVON Stop: 01/28/25 08:59 Last Admin: 12/29/24 08:20 Dose: 1 cap Heparin Sodium (Beef Lung) (Heparin 10 Unit/Ml 5 Ml Flush) 10 ml FLUSH BID KAVON Stop: 01/28/25 08:59 Last Admin: 12/29/24 08:35 Dose: 10 ml Daptomycin 850 mg/ Syringe 17 mls @ 9.5 mls/min IV Q24H [facility], [facility]–1983; Protocol Stop: 01/12/25 21:59 Amiodarone HCl/Dextrose (Nexterone / D5w) 360 mg in 200 mls @ 33.333 mls/hr IV ONE ONE Stop: 12/29/24 19:05 Last Admin: 12/29/24 13:39 Dose: 1 mg/min, 33.3 mls/hr Amiodarone HCl/Dextrose (Nexterone / D5w) 360 mg in 200 mls @ 16.667 mls/hr IV .Q12H [facility], [facility]1983 Stop: 01/28/25 18:59 Heparin Sodium/Dextrose (Heparin 97416 Unit/500 Ml D5w) 25,000 units in 500 mls @ 28 mls/hr IV .[id number] [facility], [facility]–1983; Protocol Stop: 01/28/25 16:29 Last Admin: 12/29/24 17:12 Dose: 1,400 units/hr, 28 mls/hr Insulin Aspart (Insulin Aspart Per Unit Charge) 0 units SC ACHS [facility], [facility]1983 Stop: 01/27/25 20:59 Last Admin: 12/29/24 17:16 Dose: 8 units Insulin Glargine (Lantus Per Unit Charge) 80 units SQ PM KAVON Stop: 01/27/25 22:44 Last Admin: 12/28/24 23:23 Dose: 80 units Levothyroxine Sodium (Levothyroxine Sodium 75 Mcg Tablet) 75 mcg PO DAILYBB [facility], [facility]1983 Stop: 01/28/25 06:29 Last Admin: 12/29/24 05:24 Dose: 75 mcg Loratadine (Loratadine 10 Mg Tab) 10 mg PO DAILY [facility]1983 Stop: 01/28/25 08:59 Last Admin: 12/29/24 08:21 Dose: 10 mg Magnesium Chloride (Magnesium Chloride W/Calcium 64mg Delayed Rel Tab) 64 mg PO DAILY [facility], [facility]1983 Stop: 01/28/25 08:59 Last Admin: 12/29/24 08:21 Dose: 64 mg Oxycodone HCl (Oxycodone Hcl Ir 5 Mg Tab (Immediate Release)) 10 mg PO Q6H PRN PRN Reason: Pain Stop: 01/11/25 22:26 Last Admin: 12/29/24 13:11 Dose: 10 mg Pantoprazole Sodium (Pantoprazole 40 Mg Tab) 40 mg PO DAILY [facility], [facility]1983 Stop: 01/28/25 08:59 Last Admin: 12/29/24 08:21 Dose: 40 mg Potassium Chloride (Potassium Chloride Crtab 20 Meq Tabcr) 20 meq PO QAM [facility], [facility]1983 Stop: 01/28/25 15:59 Last Admin: 12/29/24 17:20 Dose: 20 meq Spironolactone (Spironolactone 25 Mg Tab) 25 mg PO DAILY [facility], [facility]1983 Stop: 01/28/25 08:59 Last Admin: 12/29/24 08:21 Dose: 25 mg Torsemide (Torsemide 20 Mg Tab) 20 mg PO DAILY [facility]1983 Stop: 01/28/25 08:59 Last Admin: 12/29/24 08:21 Dose: 20 mg Warfarin Sodium (Warfarin Sod 5 Mg Tab) 5 mg PO [email or web address] [facility], [facility]1983 Stop: 01/27/25 22:26 Last Admin: 12/28/24 23:57 Dose: 5 mg Warfarin Sodium (Warfarin Sod 2.5 Mg Tab) 2.5 mg PO [email or web address] [facility]1983 Stop: 01/27/25 22:59 Last Admin: 12/28/24 23:57 Dose: 2.5 mg Warfarin Sodium (Warfarin Sod 10 Mg Tab) 10 mg PO [email or web address] [facility] Stop: 01/28/25 15:59 Last Admin: 12/29/24 15:31 Dose: 10 mg
[2024-12-29] MEDS: AMIODARONE / D5W 360 MG/200 ML BAG IV SCH (19:09)
[2024-12-29 20:45] LABS: ANTI-Xa, UFH(UnfractionatedHep 0.70 IU/ml (0.3-0.7)
[2024-12-29] MEDS: LANTUS PER UNIT CHARGE SQ SCH (21:08)
[2024-12-29] MEDS: DAPTOmycin 850 MG in SYRINGE 0 ML IV SCH (21:16)
[2024-12-30 05:52] LABS: Hematocrit (blood only) 29.2 % (42.0-52.0); Hemoglobin 9.9 g/dl (14.0-18.0); Mean Corpuscular Hemoglobin 28.9 pg (25.0-34.0); Mean Corpuscular Volume 85.1 fL (80.0-100.0); Platelet Count 171 K/uL (130-400); RDW Standard Deviation 44.8 fL (36.4-46.3); Red Blood Count 3.43 M/uL (4.70-6.10); White Blood Count 8.97 K/ul (4.8-10.8)
[2024-12-30 06:06] LABS: Anion Gap 10.0 (3-11); Blood Urea Nitrogen 25.0 mg/dl (6-23); Calcium 8.6 mg/dl (8.6-10.3); Carbon Dioxide 23.0 mmol/L (21-32); Chloride 102.0 mmol/L (98-107); Creatinine Clr Calc Pharmacy 47.5 ml/min; Glucose 110.0 mg/dl (70-99(Fasting)); Magnesium 1.8 mg/dl (1.7-2.4); Potassium 3.7 mmol/L (3.5-5.1); Sodium 135.0 mmol/L (136-145)
[2024-12-30 06:15] LABS: ANTI-Xa, UFH(UnfractionatedHep 0.43 IU/ml (0.3-0.7)
[2024-12-30 06:22] LABS: INR 3.0 (0.9-1.1); Prothrombin Time 29.3 Seconds (9.0-12.0)
[2024-12-30 11:26] VITALS: BP 136/81; PULSE 75; RESP 20; TEMP 97.7; O2SAT 96
--- NOTE | 2024-12-30 11:31 | Hospitalist Progress Note ---
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 Rhythm strips suggesting likely atrial fibrillation with aberrant conduction. Periods of atrial fibrillation/flutter as well as sinus rhythm not ed since admission with underlying incomplete left bundle branch block. Started IV amiodarone infusion. Titrate oral amiodarone to 200 mg twice daily and attempt to maintain sinus rhythm. Initiate IV anticoagulation with heparin due to subtherapeutic INR. Repeat PT/INR in AM. Continue telemetry monitoring. 12/30 continue IV amiodarone in addition to p.o. 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 on 12/07/2019 Was on intravenous vancomycin and oral rifampicin which was discontinued due to CARLOS and also abnormal liver function test Remains on intravenous daptomycin 950 mg IV daily which will be continued till January 17 and Doxycycline 100 mg twice daily from January 18 to be continued for life (5) CAD (coronary artery disease) of artery bypass graft: Plan: Denies any chest pain - continue current medications, as per cardiology (6) Systolic CHF: Plan: No acute CHF - continue diuretics, as per cardiology (7) Diabetes type 2: Plan: Has been on Lantus - sliding scale insulin coverage (8) CKD (chronic kidney disease): Plan: - Creatinine remains stable cont. to monitor DVT prophylaxis Coumadin/heparin CODE STATUS full Admission and Anticipated Discharge Date Admission Date: December 28, 2024 Subjective seen resting in bed, comfortable, watching TV States he feels fine overall No recurrence of alarms from the defibrillator Denies chest pain, palpitations, dizziness, shortness of breath Ambulating in the room with no problems No other new symptoms Review of Systems Review of Systems: all noted and negative except for above Physical Exam Physical Exam: General- oriented x 3, not in distress, speaks in sentences with no effort or accessory muscle use Eyes- anicteric Neck- no JVD Lungs- clear breath sounds bilaterally, no rales/wheezes Heart- normal rate, regular rhythm; no murmurs Abdomen- normal bowel sounds, nondistended, soft, nontender Extremities- no pretibial edema, no calf tenderness Neuro- alert, oriented x 3; no gross focal neurologic deficits Skin- warm & dry Results & Data Results & Data Vital Signs (Past 12 Hours) Vital Signs Temp Pulse Pulse Resp BP Pulse Ox O2 Del Method 12/30/24 11:25 36.5 C 75 20 136/81 96 Room Air 12/30/24 07:20 58 L 12/30/24 07:10 36.6 C 65 19 124/75 95 Room Air 12/30/24 02:50 36.6 C 88 17 133/67 97 Room Air all noted and reviewed including below
--- NOTE | 2024-12-30 14:24 | Cardiology Progress Note ---
Date of Service December 30, 2024 Assessment & Plan (1) Paroxysmal A-fib: (2) Paroxysmal VT: (3) MRSA bacteremia: (4) History of mechanical aortic valve replacement: Plan Patient with recent admissions for sepsis/bacteremia acute infection of his ICD requiring extraction in November 2024. Now on IV antibiotics for 6 weeks and wearing ZOLL defib LifeVest. Yesterday Life vest was alarming and patient "aborted" the shocks as he had no significant symptoms. The telemetry strips were reviewed by EP which demonstrated wide complex tachycardia - possible atrial flutter with aberrancy vs VT. ER recommended. Upon arrival, patient was in atrial fibrillation with controlled rates. Per review of recent EKG"s = afib was considered persistent over the last few months. PAF - converting to NSR on amiodarone gtt -Stop amio gtt -continue amiodarone 200 mg BID -Episodes of wide complex tachy likely consistent with afib RVR with aberrancy. -replace magnesium with goal 2-3 -replace potassium with goal 4-5 Ongoing renal insufficiency -outpatient nephrology follow up recommended Recent bacteremia -JUDIE was negative for endocarditis in November 2024 -ICD removed -Continue IV antibiotics per ID for 6 weeks -He has wound check tomorrow at [facility] and should keep this appointment. Mechanical AVR Continue anticoagulation with Coumadin. INR goal is 2.5-3.5 Stop IV heparin - INR was 3.0 today HFrEF -appears euvolemic -continue torsemide and spironolactone -JOSEFINA was held in november 2024 upon discharge due to hypotension stable cardiac symptoms. discharge on amiodarone 200 mg BID Wound check already scheduled for tomorrow at and patient should keep this appt Continue antibiotics per ID Case discussed with Dr. Franco I spent a total of 30 minutes on the date of service in preparation, delivery, and documentation of the care provided to this patient, excluding any time spent in the performance of separately billed services. Milly Luong PA-C Department of Cardiology, [facility] This chart was completed in part utilizing Speech Voice Recognition Software. Grammatical errors, random word insertions, pronoun errors, and incomplete sentences are an occasional consequence of this system due to software limitations, ambient noise, and hardware issues. Any formal questions or concerns about the content, text, or information contained within the body of this dictation should be directly addressed to the provider for clarification. Admission and Anticipated Discharge Date Admission Date: December 28, 2024 Supervising Physician Co-Signing Physician Notes I have personally performed a history and physical examination on the patient. I have reviewed the advance practitioner's documentation, and I agree with, and take responsibility for the plan of care. 64-year-old male with complex history noted above, LVEF 44%, presents with alarms via LifeVest due to episodes of wide complex tachycardia. Rhythm strips suggesting likely atrial fibrillation with aberrant conduction. Telemetry overnight revealing conversion to sinus rhythm with occasional episodes of atrial fibrillation. Intermittent left bundle branch block and incomplete left bundle branch block noted. No evidence of ventricular tachycardia. Discontinue IV amiodarone. Titrate oral amiodarone to 200 mg twice daily and attempt to maintain sinus rhythm. Discontinue heparin. Dose warfarin for goal INR of 2.5-3.5. No further inpatient cardiac testing at this time. He will follow-up tomorrow in the clinic for a wound check. Cardiology will sign off. I spent a total of 30 minutes on the date of service in preparation, delivery, and documentation of the care provided to this patient, excluding any time spent in the performance of separately billed services. Paul Franco DO, [facility] Subjective Patient resting in bed. hoping to be discharged today. Feeling well. No recurrent "alarms" on his life vest. He is currently NSR. Atrial flutter episodes have improved. he had several episodes of wide complex tachycardia this morning without symptoms. These episodes may have been atrial flutter with aberrancy Review of Systems Review of Systems: All systems reviewed & are unremarkable except as noted in HPI & below Physical Exam Constitutional: WD/WN, vitals as above + obese; no acute distress Neck: + thick neck Respiratory: normal respiratory effort, lungs clear to auscultation Cardiovascular: Rate/Rhythm: regular rate and regular rhythm Heart Sounds: + murmur (II/ systolic murmur) Vessels: no JVD Extremities: no edema Gastrointestinal (Abdomen): normal bowel sounds, soft, nontender, no hepatosplenomegaly Neurologic: PERRL, EOMI, accommodation nl, no face palsy, no dysarthria Results & Data Vital Signs (Past 12 Hours) Vital Signs Temp Pulse Pulse Resp BP Pulse Ox O2 Del Method 09/04/25 14:00 36.5 C 75 20 136/81 96 12/30/24 11:25 36.5 C 75 20 136/81 96 Room Air 12/30/24 07:20 58 L 12/30/24 07:10 36.6 C 65 19 124/75 95 Room Air 12/30/24 02:50 36.6 C 88 17 133/67 97 Room Air Laboratory Results Coagulation 12/30/24 Range/Units 05:31 PT 29.3 H (9.0-12.0) Seconds CBC 12/30/24 Range/Units 05:31 WBC 8.97 (4.8-10.8) K/ul RBC 3.43 L (4.70-6.10) M/uL Hgb 9.9 L (14.0-18.0) g/dl Hct 29.2 L (42.0-52.0) % Plt Count 171 (130-400) K/uL Comprehensive Metabolic Panel 12/30/24 Range/Units 05:31 Sodium 135 L (136-145) mmol/L Potassium 3.7 (3.5-5.1) mmol/L Chloride 102 (98-107) mmol/L Carbon Dioxide 23 (21-32) mmol/L BUN 25 H (6-23) mg/dl Creatinine 1.74 H (0.6-1.4) mg/dl Glucose 110 H (70-99(Fasting)) mg/dl Calcium 8.6 (8.6-10.3) mg/dl Intake and Output 12/29/24 12/30/24 12/30/24 22:59 06:59 14:59 Intake Total 1476.867 / 2031.401 267.867 / 2031.401 1625.266 / 1625.266 Output Total 800 / 2275 900 / 2275 1700 / 1700 Balance 676.867 / -243.599 -632.133 / -243.599 -74.734 / -74.734 Intake: IV 406.867 / 861.401 267.867 / 615.009 3061.266 / 1025.266 Amiodarone / D5w 150 mg In 100 100 / 100 ml @ 600 mls/hr IV NOW STA Rx#: [id number] Amiodarone / D5w 360 mg In 200 200.00 / 200.00 400 / 400 ml @ 0.5 MG/MIN 16.667 mls/hr IV .Q12H [facility] Rx#:[id number] Heparin 80001 Unit/500 ml D5w 106.867 / 374.734 267.867 / 374.734 625.266 / 625.266 25,000 units In 500 ml @ 1,400 UNITS/HR 28 mls/hr IV .[id number] [facility] Rx#:[id number] Oral 1070 / 1170 600 / 600 Output: Urine 800 / 2275 900 / 2275 1700 / 1700 Other: Weight 89.7 kg 89.7 kg Weight Measurement Method Built in [facility] Patient Weight 12/31/24 06:59 Weight 89.7 kg Diagnostic Findings Telemetry reviewed: Currently NSR in the 's. Several non sustained episodes of atrial flutter and WCT, likely atrial flutter with aberrancy. Medications Administered Current Inpatient Medications Acetaminophen (Acetaminophen 325 Mg Tab) 650 mg PO Q4H PRN PRN Reason: PAIN/FEVER >100.5F Stop: 01/27/25 22:26 Amiodarone HCl (Amiodarone 200 Mg Tab) 200 mg PO BID KAVON Stop: 01/28/25 20:59 Last Admin: 12/30/24 07:27 Dose: 200 mg Aspirin (Aspirin 81 Mg Chew) 81 mg PO DAILY KAVON Stop: 01/28/25 08:59 Last Admin: 12/30/24 07:36 Dose: 81 mg Calcium Carbonate (Calcium Carbonate 500 Mg Chewable Tab) 500 mg PO Q8H PRN PRN Reason: Heartburn Stop: 01/27/25 22:50 Ezetimibe (Ezetimibe 10 Mg Tab) 10 mg PO DAILY KAVON Stop: 01/28/25 08:59 Last Admin: 12/30/24 10:48 Dose: 10 mg Fish Oil ([place]-3 (Purified Fish Oil) 1 Gm Cap) 1 cap PO DAILY KAVON Stop: 01/28/25 08:59 Last Admin: 12/30/24 10:48 Dose: 1 cap Heparin Sodium (Beef Lung) (Heparin 10 Unit/Ml 5 Ml Flush) 10 ml FLUSH BID KAVON Stop: 01/28/25 08:59 Last Admin: 12/30/24 07:36 Dose: Not Given Daptomycin 850 mg/ Syringe 17 mls @ 9.5 mls/min IV Q24H [facility]; Protocol Stop: 01/12/25 21:59 Last Admin: 12/29/24 21:16 Dose: 9.5 mls/min Insulin Aspart (Insulin Aspart Per Unit Charge) 0 units SC ACHS KAVON Stop: 01/27/25 20:59 Last Admin: 12/30/24 12:32 Dose: 6 units Insulin Glargine (Lantus Per Unit Charge) 85 units SQ PM KAVON Stop: 01/28/25 20:59 Last Admin: 12/29/24 21:08 Dose: 85 units Levothyroxine Sodium (Levothyroxine Sodium 75 Mcg Tablet) 75 mcg PO DAILYBB [facility] Stop: 01/28/25 06:29 Last Admin: 12/30/24 05:56 Dose: 75 mcg Loratadine (Loratadine 10 Mg Tab) 10 mg PO DAILY [facility] Stop: 01/28/25 08:59 Last Admin: 12/30/24 10:49 Dose: 10 mg Magnesium Chloride (Magnesium Chloride W/Calcium 64mg Delayed Rel Tab) 64 mg PO DAILY [facility] Stop: 01/28/25 08:59 Last Admin: 12/30/24 10:49 Dose: 64 mg Oxycodone HCl (Oxycodone Hcl Ir 5 Mg Tab (Immediate Release)) 10 mg PO Q6H PRN PRN Reason: Pain Stop: 01/11/25 22:26 Last Admin: 12/30/24 13:01 Dose: 10 mg Pantoprazole Sodium (Pantoprazole 40 Mg Tab) 40 mg PO DAILY [facility] Stop: 01/28/25 08:59 Last Admin: 12/30/24 10:48 Dose: 40 mg Potassium Chloride (Potassium Chloride Crtab 20 Meq Tabcr) 20 meq PO QAM [facility] Stop: 01/28/25 15:59 Last Admin: 12/30/24 07:27 Dose: 20 meq Spironolactone (Spironolactone 25 Mg Tab) 25 mg PO DAILY [facility] Stop: 01/28/25 08:59 Last Admin: 12/30/24 07:27 Dose: 25 mg Torsemide (Torsemide 20 Mg Tab) 20 mg PO DAILY [facility] Stop: 01/28/25 08:59 Last Admin: 12/30/24 10:48 Dose: 20 mg Warfarin Sodium (Warfarin Sod 5 Mg Tab) 5 mg PO [email or web address]@1600 [facility] Stop: 01/27/25 22:26 Last Admin: 12/28/24 23:57 Dose: 5 mg Warfarin Sodium (Warfarin Sod 2.5 Mg Tab) 2.5 mg PO [email or web address]@1600 [facility] Stop: 01/27/25 22:59 Last Admin: 12/28/24 23:57 Dose: 2.5 mg Warfarin Sodium (Warfarin Sod 10 Mg Tab) 10 mg PO [email or web address]@1600 [facility] Stop: 01/28/25 15:59 Last Admin: 12/29/24 15:31 Dose: 10 mg PG Care Time/CCT Total # of Minutes Spent Total Time Spent with Patient: Total time spent is greater than 50% in coordination of care (as documented) at patient's floor/unit and/or counseling patient: Coding Level of Care Code 44091 SUB INP/OBS CARE 3/50MIN Diagnoses Paroxysmal A-fib I48.0 Paroxysmal VT I47.20 MRSA bacteremia R78.81; B95.62 History of mechanical aortic valve replacement Z95.2
--- NOTE | 2024-12-30 15:19 | Discharge Summary ---
Discharge Summary Date of Service December 30, 2024 Principal Dx & Hospital Course #1 = Principal Diagnosis (1) Defibrillator discharge: To clarify - There was no defibrillator discharge Pt had alarms from his Life vest History of infected ICD removal and placement of external defibrillator recently Concern for frequent pauses and was advised to come to emergency room Per admitting provider - Patient remains free from any symptoms in the emergency room and hemodynamically stable Cardiology/EP cardiology consulted Cont. coding quality analyst electrolytes, replete as needed Possible frequent pauses EKG was in sinus rhythm with first-degree AV block with occasional premature ventricular complexes Rate of 73 and no significant pauses noted Will need evaluation of defibrillator- cardiology consult 12/29 Pt seen by cardiology - alarms via LifeVest due to episodes of wide complex tachycardia. Rhythm strips suggesting likely atrial fibrillation with aberrant conduction. Periods of atrial fibrillation/flutter as well as sinus rhythm noted since admission with underlying incomplete left bundle branch block. Started IV amiodarone infusion. Titrate oral amiodarone to 200 mg twice daily and attempt to maintain sinus rhythm. Initiate IV anticoagulation with heparin due to subtherapeutic INR. Repeat PT/INR in AM. Continue telemetry monitoring. 12/30 patient converted to sinus rhythm with occasional atrial fibrillation episodes, Intermittent left bundle branch block and incomplete left bundle branch block noted. No evidence of ventricular tachycardia. Cleared for discharge per cardiology service: discharge on amiodarone 200 mg BID Wound check already scheduled for tomorrow at and patient should keep this appt Continue antibiotics per ID (2) History of mechanical aortic valve replacement: Has been on warfarin INR 2.2 on admission, INR 2.1 today - pt on warfarin, IV heparin initiated by cardiology 12/30 INR 3.0, continue Coumadin Coumadin clinic notified (3) Hx of ascending aorta replacement: (4) MRSA bacteremia: History of MRSA bacteremia and infection of the ICD with removal on 12/07/2019 Was on intravenous vancomycin and oral rifampicin which was discontinued due to CARLOS and also abnormal liver function test Remains on intravenous daptomycin 950 mg IV daily which will be continued till January 17 and Doxycycline 100 mg twice daily from January 18 to be continued for life (5) CAD (coronary artery disease) of artery bypass graft: Denies any chest pain - continue current medications, as per cardiology (6) Systolic CHF: No acute CHF - continue diuretics, as per cardiology (7) Diabetes type 2: Has been on Lantus - sliding scale insulin coverage (8) CKD (chronic kidney disease): - Creatinine remains stable cont. 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 He was recently in the hospital 12/24/2024 with CARLOS, electrolyte imbalance and nausea vomiting likely secondary to use of vancomycin and rifampicin. He was evaluated by infectious disease specialist and was sent home on 25 of December on intravenous daptomycin and he was doing fine following discharge from the hospital. This morning his external defibrillator fired multiple times and he contacted the cardiology service who noted to have occasional pauses and was advised to come to emergency room for observation. He remains free from any symptoms since in the emergency room and his labs including EKG remain fairly unremarkable. He was supplemented with intravenous potassium and also intravenous magnesium and was admitted to telemetry unit for continuation of care. Admission Exam Per Admitting Provider Physical Exam: Lying in bed without any acute distress Constitutional: well developed and well nourished; not ill appearing Eyes: PERRL, conjunctivae normal, anicteric sclerae ENMT: external ear and nose normal, oropharynx normal Neck: trachea midline, no thyromegaly Respiratory: no respiratory distress Auscultation: lungs clear to auscultation bilaterally Cardiovascular: Rate/Rhythm: regular rate and regular rhythm; not tachycardic Heart Sounds: normal S1, normal S2 and + murmur Extremities: no edema Gastrointestinal (Abdomen): Inspection/Auscultation: normal bowel sounds; abdomen not distended Percussion/Palpation: abdomen soft; abdomen nontender Musculoskeletal: no acute arthritis involving any of the joint Neurologic: normal touch/pain/proprioception and moves all extremities; no focal motor deficits Psychiatric: A+Ox3, euthymic affect Lymphatic: no cervical or axillary lymphadenopathy Discharge Exam General- oriented x 3, not in distress, speaks in sentences with no effort or accessory muscle use Eyes- anicteric Neck- no JVD Lungs- clear breath sounds bilaterally, no rales/wheezes Heart- normal rate, regular rhythm; no murmurs Abdomen- normal bowel sounds, nondistended, soft, nontender Extremities- no pretibial edema, no calf tenderness Neuro- alert, oriented x 3; no gross focal neurologic deficits Skin- warm & dry Updated Medication List Medication Instructions Recorded Confirmed Type acetaminophen 325 mg tablet 650 mg PO Q4H PRN PAIN/FEVER 12/23/24 12/28/24 History (Tylenol) >100.5F aspirin 81 mg chewable tablet 81 mg PO DAILY 12/23/24 12/28/24 History calcium carbonate (Tums E-X) 300 mg PO Q8H PRN Heartburn 12/23/24 12/28/24 History doxycycline hyclate 100 mg capsule 100 mg PO BID 12/23/24 12/23/24 History ezetimibe 10 mg tablet 10 mg PO DAILY 12/23/24 12/28/24 History heparin lock flush (porcine) 10 10 unit IV BID 12/23/24 12/28/24 History unit/mL intravenous solution insulin glargine 100 unit/mL (3 80 unit subcut PM 12/23/24 12/28/24 History mL) subcutaneous pen (Lantus Solostar U-100 Insulin) levothyroxine 75 mcg tablet 75 mcg PO DAILYBB 12/23/24 12/28/24 History (Levoxyl) loratadine 10 mg tablet (Claritin) 10 mg PO DAILY 12/23/24 12/28/24 History magnesium chloride 64 mg 64 mg PO QPM 12/23/24 12/28/24 History (magnesium chloride) tablet,delayed release omega-3 fatty acids 1,000 mg 2,000 mg PO DAILY 12/23/24 12/28/24 History capsule pantoprazole 40 mg tablet,delayed 40 mg PO DAILY 12/23/24 12/28/24 History release semaglutide 0.25 mg or 0.5 mg (2 0.5 mg subcut WK 12/23/24 12/28/24 History mg/3 mL) subcutaneous pen injector (Ozempic) sodium chloride 0.9 % (flush) 10 ml IV DIRECTED 12/23/24 12/28/24 History spironolactone 25 mg tablet 25 mg PO DAILY 12/23/24 12/28/24 History warfarin 5 mg tablet 10 mg PO .SEE ATTACHED 12/23/24 12/28/24 History torsemide 20 mg tablet 20 mg PO DAILY #0 tabs 12/25/24 12/28/24 Rx daptomycin 500 mg intravenous 0 mg IV QAM 12/28/24 12/28/24 History solution simethicone 80 mg chewable tablet 80 mg PO Q6H PRN GAS OR NAUSEA 12/28/24 12/28/24 History warfarin 7.5 mg tablet 7.5 mg PO .SEE ATTACHED INSTR 12/28/24 12/28/24 History amiodarone 200 mg tablet 200 mg PO BID 30 days #60 tabs 12/30/24 Rx potassium chloride 20 mEq 20 meq PO QAM 30 days #30 tabs 12/30/24 Rx tablet,extended release(part/cryst) Hospital Stay Data Consultations 12/28/24 19:43 ED Decision to Admit Stat 12/28/24 21:00 Consult Cardiology Routine Diagnostic Imagining Performed Laboratory Results WBC 8.97 K/ul (4.8-10.8) 12/30/24 05:31 RBC 3.43 M/uL (4.70-6.10) L 12/30/24 05:31 Hgb 9.9 g/dl (14.0-18.0) L 12/30/24 05:31 Hct 29.2 % (42.0-52.0) L 12/30/24 05:31 MCV 85.1 fL (80.0-100.0) 12/30/24 05:31 MCH 28.9 pg (25.0-34.0) 12/30/24 05:31 MCHC 33.9 g/dL (32.0-36.0) 12/30/24 05:31 RDW Std Deviation 44.8 fL (36.4-46.3) 12/30/24 05:31 RDW Coeff of Yanelis 14.6 % (11.5-14.5) H 12/30/24 05:31 Plt Count 171 K/uL (130-400) 12/30/24 05:31 MPV 9.0 fL (9.4-12.4) L 12/30/24 05:31 Immature Gran % (Auto) 0.7 % 12/29/24 05:18 Neut % (Auto) 63.8 % 12/29/24 05:18 Lymph % (Auto) 24.2 % 12/29/24 05:18 [place] % (Auto) 7.5 % 12/29/24 05:18 Eos % (Auto) 2.8 % 12/29/24 05:18 Baso % (Auto) 1.0 % 12/29/24 05:18 Neut # (Auto) 6.07 K/uL (1.40-6.50) 12/29/24 05:18 Lymph # (Auto) 2.31 K/uL (1.20-3.40) 12/29/24 05:18 [place] # (Auto) 0.72 K/uL (0.11-0.59) H 12/29/24 05:18 Eos # (Auto) 0.27 K/uL (0.00-0.50) 12/29/24 05:18 Baso # (Auto) 0.10 K/uL (0.00-0.20) 12/29/24 05:18 Immature Gran # (Auto) 0.07 K/uL (0.01-0.20) 12/29/24 05:18 PT 29.3 Seconds (9.0-12.0) H 12/30/24 05:31 INR 3.0 (0.9-1.1) H 12/30/24 05:31 APTT 40 Seconds (21-31) H 12/28/24 18:30 PTT Ratio 1.5 12/28/24 18:30 Heparin Anti-Xa, Unfract 0.43 IU/ml (0.3-0.7) 12/30/24 05:31 Sodium 135 mmol/L (136-145) L 12/30/24 05:31 Potassium 3.7 mmol/L (3.5-5.1) 12/30/24 05:31 Chloride 102 mmol/L (98-107) 12/30/24 05:31 Carbon Dioxide 23 mmol/L (21-32) 12/30/24 05:31 Anion Gap 10 (3-11) 12/30/24 05:31 BUN 25 mg/dl (6-23) H 12/30/24 05:31 Creatinine 1.74 mg/dl (0.6-1.4) H 12/30/24 05:31 Est Cr Clr Drug Dosing 47.5 ml/min 12/30/24 05:31 eGFR 43.24 12/30/24 05:31 BUN/Creatinine Ratio 14.4 (10-20) 12/30/24 05:31 Glucose 110 mg/dl (70-99(Fasting)) H 12/30/24 05:31 POC Glucose 127 mg/dl (70-99) H 12/30/24 11:45 Calcium 8.6 mg/dl (8.6-10.3) 12/30/24 05:31 Phosphorus 4.1 mg/dl (2.5-4.9) 12/30/24 05:31 Magnesium 1.8 mg/dl (1.7-2.4) 12/30/24 05:31 Total Bilirubin 0.5 mg/dl (0.2-1.0) 12/29/24 05:18 AST 51 U/L (13-39) H 12/29/24 05:18 ALT 92 U/L (7-52) H 12/29/24 05:18 Alkaline Phosphatase 89 U/L (34-104) 12/29/24 05:18 Troponin I High Sens 12.6 pg/ml (0-20) 12/29/24 05:18 Total Protein 8.0 gm/dl (6.0-8.3) 12/29/24 05:18 Albumin 3.4 gm/dl (3.4-5.0) 12/29/24 05:18 Globulin 4.6 gm/dl (2.5-4.0) H 12/29/24 05:18 Albumin/Globulin Ratio 0.7 (0.9-2) L 12/29/24 05:18 Impressions Chest X-Ray 12/28/24 18:20 Chest radiograph, one view History: Chest pain Comparison: None Findings: Single AP view of the chest performed. No focal consolidation or pleural effusion. No pneumothorax. The cardiomediastinal silhouette is within normal limits. Normal pulmonary vascularity. No evidence for lymphadenopathy. No visualized bony or soft tissue abnormality. Median sternotomy wires. Chronic right rib deformities. Impression: Normal chest radiograph Electronically signed by aMrio Barbosa 12-28-2024 6:52 PM Pending Results Patient Have Any Pending Studies at Discharge: No Discharge Instructions Given to Patient (Per Discharging Provider) PLEASE REFER TO YOUR NEW MEDICATION LIST AND FOLLOW INSTRUCTIONS CAREFULLY. YOUR NEW MEDICATIONS INCLUDE: Increase your amiodarone from once daily to twice daily. Potassium supplement daily. PLEASE CALL YOUR PRIMARY CARE PHYSICIAN OR RETURN TO THE ER IF WITH WORSENING OF SYMPTOMS, INCLUDING Alarms from your defibrillator, chest pain, shortness of breath, palpitations, dizziness, weakness, etc. FOLLOW UP WITH PRIMARY CARE PHYSICIAN OUTLINED ABOVE. FOLLOW UP WITH CARDIOLOGY CLINIC SCHEDULED. Total Time Total Time Spent Total Time Spent (In Minutes): 50 minutes
== END 2024-12-30 16:25 | disposition home health service (06) | DRG 309 ==
LOC: ED 18:10 → 4W 20:03 → SUATTDRO 20:03 → 4W 21:25
DX: Z95.810 Presence of automatic (implantable) cardiac defibrillator; I44.0 Atrioventricular block, first degree; I47.29 Other ventricular tachycardia; I45.2 Bifascicular block; I25.10 Atherosclerotic heart disease of native coronary artery without angina pectoris; Z79.82 Long term (current) use of aspirin; Z79.85 Long-term (current) use of injectable non-insulin antidiabetic drugs; Z79.890 Hormone replacement therapy; Z95.1 Presence of aortocoronary bypass graft; N18.9 Chronic kidney disease, unspecified; B95.62 Methicillin resistant Staphylococcus aureus infection as the cause of diseases classified elsewhere; I48.0 Paroxysmal atrial fibrillation; I50.20 Unspecified systolic (congestive) heart failure; E03.9 Hypothyroidism, unspecified; Z95.2 Presence of prosthetic heart valve; I44.7 Left bundle-branch block, unspecified; I13.0 Hypertensive heart and chronic kidney disease with heart failure and stage 1 through stage 4 chronic kidney disease, or unspecified chronic kidney disease; Z86.74 Personal history of sudden cardiac arrest; R78.81 Bacteremia; Z79.01 Long term (current) use of anticoagulants; I48.19 Other persistent atrial fibrillation; E11.22 Type 2 diabetes mellitus with diabetic chronic kidney disease; I48.92 Unspecified atrial flutter